=== PATIENT | male | born 1960 ===

== ENCOUNTER 2024-07-23 08:34 | Inpatient (IN) | payer SELFPAY ==
[2024-07-23] VITALS (15 sets, daily range): BP systolic 157–218; BP diastolic 80–119; PULSE 58–855; RESP 13–26; TEMP 36.7–37.2; O2SAT 95–99; BMI 23.1
--- NOTE | ~2024-07-23 | XR_ITS ---
EXAMINATION: XR CHEST CLINICAL INFORMATION: dyspnea COMPARISON: None available. TECHNIQUE: Frontal view of the chest was obtained. FINDINGS: The cardiac, hilar, and mediastinal contours are normal. Aortic mural calcification. Lungs are somewhat hyperaerated bilaterally. There are patchy airspace opacities bilateral lower lungs suspicious for pneumonia. Subtle Dejan B lines and haziness of the interstitium may indicate a mild superimposed degree of interstitial pulmonary edema. There are no effusions or pneumothorax. No focal osseous or soft tissue abnormality. XR/XR chest 1V IMPRESSION: 1. Hyperaerated lung parenchyma with bibasilar parenchymal opacities suspicious for pneumonia in the appropriate clinical setting. 2. Haziness of the interstitium with Dejan B lines in the lung bases may indicate associated mild interstitial pulmonary edema. Electronically signed by: Osvaldo Mancera MD 07/23/2024 11:03 AM EDT
[2024-07-23] MEDS: Albuterol Sulfate 7.5 MG, Albuterol/Iprat 2.5/0.5MG 3 ML 3 ML INHALE (08:48)
--- NOTE | 2024-07-23 09:00 | ECG_ITS ---
Test Reason : SOB/HTN Blood Pressure : */* mmHG Vent. Rate : 74 BPM Atrial Rate : 74 BPM P-R Int : 152 ms QRS Dur : 88 ms QT Int : 414 ms P-R-T Axes : 61 59 69 degrees QTcB Int : 459 ms Normal sinus rhythm Normal ECG When compared with ECG of 11-Oct-2006 06:54, Non-specific change in ST segment in Anterior leads T wave amplitude has increased in Lateral leads QT has lengthened Referred By: Mario Alberto Vuong Electronically Signed By: FREDDIE LUNA MD
--- NOTE | 2024-07-23 09:10 | ED.GENADULT ---
HPI - General Adult General Chief complaint: Dyspnea Stated complaint: SOB FROM SNF PER EMS Source: patient and EMS Mode of arrival: EMS Limitations: no limitations History of Present Illness HPI narrative: This is a 63-year-old man with a past medical history of anxiety/depression, schizophrenia, hypertension, GERD, COPD on home O2 at 2 L prn, asthma who [facility] [place] for evaluation of dyspnea. EMS reports that they were not given arrival. EMS states finding patient having difficulty breathing and initiated the patient on CPAP. EMS states that patient was very diminished on their arrival and so provided the patient with 0.3 mg IM epinephrine, 125 mg IV Solu-Medrol and continued DuoNeb that was initiated by the longterm facility. The patient states that he has been having difficulty breathing for a few days. He states no cough or hemoptysis. He states no chest pain. He states no fevers, headache, sore throat, runny nose or sputum production. He states no GI or symptoms. Related Data Allergies Allergy/AdvReac Type Severity Reaction Status Date / Time metoprolol Allergy Unknown Verified 07/23/24 09:01 oxycodone Allergy Unknown Verified 07/23/24 09:01 Sulfa (Sulfonamide Allergy Unknown Verified 07/23/24 09:01 Antibiotics) Review of Systems Review of Systems: ROS as per HPI PMFSH Social History Social History Smoked in Last 30 Days: No Use of substances other than those prescribed or required for medical reasons: No Advance Directives: No Advance Directives Information Provided: Yes Physical Exam ED Vital Signs: Vital Signs - 24 hr 07/23/24 08:52 07/23/24 08:56 07/23/24 09:01 Temperature 98.3 F Pulse Rate 855 H 83 Respiratory Rate 26 H 24 H 22 H Blood Pressure 189/116 H 209/112 H Pulse Oximetry 95 Oxygen Delivery Method Room Air 07/23/24 09:56 07/23/24 10:53 07/23/24 11:36 Temperature 98.1 F Pulse Rate 84 Respiratory Rate 21 H Blood Pressure 203/104 H 186/87 H 173/80 H Pulse Oximetry 98 Oxygen Delivery Method Room Air 07/23/24 11:58 Temperature 99.0 F Pulse Rate 60 Respiratory Rate 13 Blood Pressure 185/85 H Pulse Oximetry 99 Oxygen Delivery Method Room Air BMI result Body Mass Index 23.1 Gen: NAD, AOx3 HEENT: NCAT, EOMI, normal conjunctiva CV: RRR, tracel pretibial peripheral pitting edema Pulm: Tachypnea, scattered expiratory wheezes, good aeration to the bases GI: Soft, NTND, no rebound, guarding or rigidity Neuro: Grossly non focal Skin: Warm, dry Medications Administered Generic Name Dose Route Start Last Admin Trade Name Freq PRN Reason Stop Dose Admin Doxycycline Hyclate 100 mg/ 250 mls @ 166.67 mls/hr 07/23/24 11:11 07/23/24 11:36 Sodium Chloride IV 07/23/24 12:40 166.67 mls/hr ONCE ONE Administration Discontinued Medications Generic Name Dose Route Start Last Admin Trade Name Freq PRN Reason Stop Dose Admin Ceftriaxone Sodium 1 gm 07/23/24 11:11 07/23/24 11:36 Ceftriaxone Sodium 1 Gm Vial IVPUSH 07/23/24 11:12 1 gm ONCE ONE Administration Albuterol Sulfate 7.5 mg/ 0 mg 07/23/24 08:46 07/23/24 08:48 Albuterol/Ipratropium 3 ml INHALE 07/23/24 08:47 1 each ONCE ONE Administration Furosemide 20 mg 07/23/24 11:11 07/23/24 11:36 Furosemide 20 Mg/2 Ml Vial IVPUSH 07/23/24 11:12 20 mg ONCE ONE Administration Protocol Medical Decision Making Medical Decision Making MDM Narrative: Differential diagnosis includes, but is not limited to asthma exacerbation, COPD exacerbation, sepsis, pneumonia, acute decompensated congestive heart failure. 0942 - given patient presenting with concerns for hypoxia and tachypnea. Sepsis treatment is initiated. Blood cultures pending. 30cc/kg fluid bolus as per sepsis guidelines not provided due to concern for fluid overload/congestive heart failure decompensation. Given wheezes on exam consistent with bronchospasm, the patient is provided nebulized bronchodilators. 1111 - given concerning chest x-ray findings for potential pneumonia as below, patient is treated empirically for community-acquired pneumonia with ceftriaxone and doxycycline. I considered azithromycin, but QTC 459 so doxycycline is alternatively provided for atypical coverage. Chest x-ray with edema as below and so given that patient is Lasix naive as per review of his home medications patient mg IV Lasix. I reviewed the patient's labs, EKG, chest x-ray and viral panel as below. I discussed the patient's case and management with admitting hospitalist, Dr. Palma, who accepts the patient for further workup and management. Critical Care Time: A total of 45 minutes spent in direct patient care with coordinating critical resuscitation, procedures, reviewing records, discussing with consultants, reviewing labs, and/or managing patient. Admission/Observation Consideration of admission/observation: Escalation of care including admission/observation considered Consult Healthcare Provider Management of the patient was discussed with: Hospitalist Lab Data MDM Lab Attestation statement: I reviewed the patient's lab results. Labs notable for leukocytosis with white blood cell count of 15.7, stable anemia at 12.0, venous blood gas with mild metabolic alkalosis with pH 7.46, pCO2 43, HCO3 31. Metabolic panel with BUN 30 and creatinine 1.30 (no previous for comparison), lactic acid 2.9 which may be secondary to hypoxia and/or secondary to the beta agonist, there was mild transaminitis with AST 58 and ALT 57, BNP 1959, viral panel negative 07/23/24 10:50 07/23/24 09:52 Labs: Lab Results 07/23/24 07/23/24 07/23/24 Range/Units 09:52 09:53 10:49 WBC (4.8-10.8) X10*3/uL RBC (4.60-5.80) X10*6/uL Hgb (14.0-18.0) g/dl Hct (42.0-52.0) % MCV (80.0-98.0) fL MCH (27.0-33.0) pg MCHC (31.0-36.0) g/dl RDW (11.0-16.0) % Plt Count (160-400) X10*3/uL MPV (9.4-12.4) fL Immature Gran % (Auto) (0.0-0.4) % Neut % (Auto) (45-73) % Lymph % (Auto) (20-40) % [place] % (Auto) (2-11) % Eos % (Auto) (0-4) % Baso % (Auto) (0-2) % Lymph # (Auto) (1.2-4.9) X10*3/uL [place] # (Auto) (0.1-1.2) X10*3/uL Eos # (Auto) (0.0-0.4) X10*3/uL Baso # (Auto) (0.0-0.2) X10*3/uL Abs Immat Gran (auto) (0.00-0.03) X10*3/uL Absolute Neuts (auto) (2.0-8.3) x10*3/uL Absolute Nucleated RBC (0.0-0.012) X10*3/uL Nucleated RBC % (auto) (0.0-0.2) /100WBC VBG pH 7.46 H (7.32-7.43) VBG pCO2 43 mmHg VBG pO2 66 mmHg VBG HCO3 31 H (22-26) mmol/L VBG O2 Saturation 90.0 % VBG Base Excess 7.1 mmol/L Sodium 136 (135-145) mmol/L Potassium 3.7 (3.3-5.1) mmol/L Chloride 100 (96-108) mmol/L Carbon Dioxide 27 (22-29) mmol/L Anion Gap 13 (12-20) BUN 30 H (9-16) mg/dL Creatinine 1.30 (0.5-1.4) mg/dL Estim Creat Clear Calc 54.3 Estimated GFR 56 Random Glucose 120 H (60-115) mg/dL Lactic Acid 2.9 H* (0.5-2.0) mmol/L Calcium 8.3 L (8.4-10.2) mg/dL Total Bilirubin 0.6 (0.0-1.0) mg/dL Direct Bilirubin 0.2 (0.0-0.5) mg/dL AST 58 H (5-37) U/L ALT 57 H (0-40) U/L Alkaline Phosphatase 63 (39-117) U/L B-Natriuretic Peptide 1959 H (<100) pg/mL Total Protein 5.8 L (6.5-8.0) g/dL Albumin 3.1 L (3.5-5.0) g/dL Influenza Type A (PCR) NEGATIVE (Negative) Influenza Type B (PCR) NEGATIVE (Negative) RSV RNA Qual (PCR) NEGATIVE (Negative) SARS-CoV-2 RNA (RT-PCR) NEGATIVE (Negative) 05/28/25 05/28/25 Range/Units 10:50 10:54 WBC 15.7 H (4.8-10.8) X10*3/uL RBC 3.94 L (4.60-5.80) X10*6/uL Hgb 12.0 L (14.0-18.0) g/dl Hct 36.4 L (42.0-52.0) % MCV 92.4 (80.0-98.0) fL MCH 30.5 (27.0-33.0) pg MCHC 33.0 (31.0-36.0) g/dl RDW 16.5 H (11.0-16.0) % Plt Count 179 (160-400) X10*3/uL MPV 10.3 (9.4-12.4) fL Immature Gran % (Auto) 1.1 H (0.0-0.4) % Neut % (Auto) 92.3 H (45-73) % Lymph % (Auto) 2.7 L (20-40) % [place] % (Auto) 3.7 (2-11) % Eos % (Auto) 0.1 (0-4) % Baso % (Auto) 0.1 (0-2) % Lymph # (Auto) 0.4 L (1.2-4.9) X10*3/uL [place] # (Auto) 0.6 (0.1-1.2) X10*3/uL Eos # (Auto) 0.0 (0.0-0.4) X10*3/uL Baso # (Auto) 0.0 (0.0-0.2) X10*3/uL Abs Immat Gran (auto) 0.17 H (0.00-0.03) X10*3/uL Absolute Neuts (auto) 14.5 H (2.0-8.3) x10*3/uL Absolute Nucleated RBC 0.000 (0.0-0.012) X10*3/uL Nucleated RBC % (auto) 0.0 (0.0-0.2) /100WBC VBG pH 7.46 H (7.32-7.43) VBG pCO2 43 mmHg VBG pO2 66 mmHg VBG HCO3 31 H (22-26) mmol/L VBG O2 Saturation 90.0 % VBG Base Excess 7.1 mmol/L Sodium (135-145) mmol/L Potassium (3.3-5.1) mmol/L Chloride (96-108) mmol/L Carbon Dioxide (22-29) mmol/L Anion Gap (12-20) BUN (9-16) mg/dL Creatinine (0.5-1.4) mg/dL Estim Creat Clear Calc Estimated GFR Random Glucose (60-115) mg/dL Lactic Acid (0.5-2.0) mmol/L Calcium (8.4-10.2) mg/dL Total Bilirubin (0.0-1.0) mg/dL Direct Bilirubin (0.0-0.5) mg/dL AST (5-37) U/L ALT (0-40) U/L Alkaline Phosphatase (39-117) U/L B-Natriuretic Peptide (<100) pg/mL Total Protein (6.5-8.0) g/dL Albumin (3.5-5.0) g/dL Influenza Type A (PCR) (Negative) Influenza Type B (PCR) (Negative) RSV RNA Qual (PCR) (Negative) SARS-CoV-2 RNA (RT-PCR) (Negative) Independent Interpretation I performed an independent interpretation of an: EKG and Plain X-Ray Interpretation: EKG shows sinus rhythm at 74 beats per minute, SC 152, QRS 88, QTC 459, no STEMI. Chest x-ray with bibasilar opacities concerning for pneumonia, no pleural effusion or pneumothorax Radiology Impression Discussion of test interpretation with radiology: I have reviewed the radiologist's reading. Radiologist Impression: XR/XR chest 1V IMPRESSION: 1. Hyperaerated lung parenchyma with bibasilar parenchymal opacities suspicious for pneumonia in the appropriate clinical setting. 2. Haziness of the interstitium with Dejan B lines in the lung bases may indicate associated mild interstitial pulmonary edema. Electronically signed by: Osvaldo Mancera MD 07/23/2024 11:03 AM EDT Dictated By: Osvaldo Mancera MD Signed By: <Electronically signed by Osvaldo Mancera MD in OV> 07/23/24 1103 External Record Review External record reviewed: Outpatient record I reviewed external/non-ED record from [facility] to obtain the patient's past medical history as per HPI above Discharge Plan Discharge Clinical Impression: Asthma with exacerbation, Asthma exacerbation in COPD, Pulmonary edema, Sepsis, Pneumonia, Leukocytosis, Anemia, Acute lactic acidosis, Elevated brain natriuretic peptide (BNP) level Patient Disposition: Admitted As Inpatient Print Language: Kittitian
[2024-07-23 10:25] LABS: Alanine Aminotransferase 57 U/L (0-40); Albumin Level 3.1 g/dL (3.5-5.0); Alkaline Phosphatase 63 U/L (39-117); Anion Gap 13 (12-20); Aspartate Amino Transferase 58 U/L (5-37); Bilirubin Direct 0.2 mg/dL (0.0-0.5); Bilirubin Total 0.6 mg/dL (0.0-1.0); Blood Urea Nitrogen 30 mg/dL (9-16); Calcium 8.3 mg/dL (8.4-10.2); Carbon Dioxide 27 mmol/L (22-29); Chloride 100 mmol/L (96-108); Creatinine Clr Calc Pharmacy 54.3; Estimated Glomerular Filt Rate 56; Glucose Random 120 mg/dL (60-115); Potassium 3.7 mmol/L (3.3-5.1); Sodium 136 mmol/L (135-145); Total Protein 5.8 g/dL (6.5-8.0)
[2024-07-23 10:28] LABS: B Type Natriuretic Peptide 1959 pg/mL (<100)
[2024-07-23 10:36] LABS: Lactic Acid 2.9 mmol/L (0.5-2.0)
[2024-07-23 10:40] LABS: Influenza A PCR NEGATIVE (Negative); Influenza B PCR NEGATIVE (Negative); Resp Syncy Virus RNA Qual PCR NEGATIVE (Negative); SARS COV2 PCR INHOUSE NEGATIVE (Negative)
[2024-07-23 10:55] LABS: Venous Blood Gas Refer to POC result
[2024-07-23 10:58] LABS: VBG Base Excess 7.1 mmol/L; VBG HCO3 31 mmol/L (22-26); VBG pCO2 43 mmHg; VBG pH 7.46 (7.32-7.43); VBG pO2 66 mmHg
[2024-07-23 10:59] LABS: VBG Base Excess 7.1 mmol/L; VBG HCO3 31 mmol/L (22-26); VBG pCO2 43 mmHg; VBG pH 7.46 (7.32-7.43); VBG pO2 66 mmHg
[2024-07-23 11:02] LABS: Basophils Percent Auto 0.1 % (0-2); MANUAL DIFF FLAG SCAN; PLT CLUMP 1; Red Cell Distribution Width 16.5 % (11.0-16.0); SCAN SMEAR FLAG 1
[2024-07-23 11:04] LABS: Eosinophils Percent Auto 0.1 % (0-4); Hematocrit 36.4 % (42.0-52.0); Imm Gran Abs Auto 0.17 X10*3/uL (0.00-0.03); Imm Gran Pct Auto 1.1 % (0.0-0.4); Lymphocytes Absolute Auto 0.4 X10*3/uL (1.2-4.9); Lymphocytes Percent Auto 2.7 % (20-40); Mean Corpuscular Hemoglobin 30.5 pg (27.0-33.0); Mean Corpuscular Volume 92.4 fL (80.0-98.0); Monocytes Absolute Auto 0.6 X10*3/uL (0.1-1.2); Monocytes Percent Auto 3.7 % (2-11); Neutrophils Absolute Auto 14.5 x10*3/uL (2.0-8.3); Neutrophils Percent Auto 92.3 % (45-73); Red Blood Count 3.94 X10*6/uL (4.60-5.80)
[2024-07-23 11:05] LABS: White Blood Count 15.7 X10*3/uL (4.8-10.8)
[2024-07-23 11:22] LABS: Mean Platelet Volume 10.3 fL (9.4-12.4); Platelet Count 179 X10*3/uL (160-400)
[2024-07-23] MEDS: Doxycycline Hyclate 100 MG in 0.9 % Sodium Chloride 250 ML 166.67 MG IV (11:36)
[2024-07-23] MEDS: cefTRIAXone sodium 1 GM VIAL IVPUSH (11:36)
[2024-07-23] MEDS: Furosemide 20 MG/2 ML VIAL IVPUSH ×2 (11:36→18:25)
[2024-07-23 11:59] LABS: Reflex Lactate? Lactic Acid Added
[2024-07-23 12:09] LABS: INTERNATIONAL NORM RATIO 0.9 (0.9-1.1); Prothrombin Time 9.9 SEC (10.9-12.4)
[2024-07-23 12:12] LABS: Partial Thromboplastin Time 25.6 SEC (26.0-36.8)
[2024-07-23 12:31] LABS: ~Lactic Acid-LAB USE ONLY 1.8 mmol/L (0.5-2.0)
--- NOTE | 2024-07-23 12:41 | PM.IMHP ---
History of Present Illness Date of Service: 07/23/24 Chief Complaint: Shorthess of breath 63-year-old male with past medical history of COPD not on home oxygen, hypertension, hyperlipidemia, schizophrenia, resident? of [facility] brought to the ED for evaluation of acute onset of shortness of breah, and initially required CPAP and has made rapid imprvement since in the ED, of CPAP. Now oxygen saturation 99 on room air. Flu, RSV and Inlufenza negative. WBC is 15, CXR possible infiltrate and Pura B line, BNP 1959, no Troponin I done. ED treatment Doxy, Ceftriaxone, Albuterol and 20 mg of iv Lasix. . At the time of my evaluation, had no respiratory distress an fairly comfortable, but BP high Review of Systems Review of Systems: Gen: no fever Resp: no sob, no cough CV: no chest, no NAVA, no leg edema GI: No n/v, no abd pain Neuro: No confusion Yes all other systems are reviewed and are negative PMFSH Social History Smoked in Last 30 Days: No Use of substances other than those prescribed or required for medical reasons: No Advance Directives: No Advance Directives Information Provided: Yes Meds Allergies Allergy/AdvReac Type Severity Reaction Status Date / Time metoprolol Allergy Unknown Verified 07/23/24 09:01 oxycodone Allergy Unknown Verified 07/23/24 09:01 Sulfa (Sulfonamide Allergy Unknown Verified 07/23/24 09:01 Antibiotics) Home Medications ?Medication ?Instructions ?Recorded ?Confirmed ?Last Taken ?Type acetaminophen 500 mg tablet 1,000 mg PO Q6H PRN dilia 07/23/24 07/23/24 Unknown History acetaminophen 650 mg rectal 650 mg GA Q4-6H PRN pain or fever 07/23/24 07/23/24 Unknown History suppository albuterol sulfate 90 mcg/actuation 2 puff inhalation Q4-6H PRN 07/23/24 07/23/24 Unknown History aerosol inhaler Wheezing amlodipine 2.5 mg tablet (Norvasc) 2.5 mg PO DAILY 07/23/24 07/23/24 Unknown History aspirin 81 mg tablet,delayed 81 mg PO DAILY 07/23/24 07/23/24 Unknown History release atorvastatin 40 mg tablet 40 mg PO BEDTIME 07/23/24 07/23/24 Unknown History benztropine 2 mg tablet 2 mg PO TID 07/23/24 07/23/24 Unknown History bisacodyl 10 mg rectal suppository 10 mg GA DAILY PRN Constipation 07/23/24 07/23/24 Unknown History cetirizine 10 mg tablet 10 mg PO DAILY PRN allergies 07/23/24 07/23/24 Unknown History docusate sodium 50 mg/5 mL oral 100 mg PO BID PRN Constipation 07/23/24 07/23/24 Unknown History liquid ferrous gluconate 324 mg (38 mg 324 mg PO DAILY 07/23/24 07/23/24 Unknown History iron) tablet fluticasone furoate 200 1 inh inhalation DAILY 07/23/24 07/23/24 Unknown History mcg-vilanterol 25 mcg/dose inhalation powder (Breo Ellipta) folic acid 1 mg tablet 1 mg PO DAILY 07/23/24 07/23/24 Unknown History gabapentin 300 mg capsule 300 mg PO TID 07/23/24 07/23/24 Unknown History haloperidol 2 mg tablet 2 mg PO BEDTIME 07/23/24 07/23/24 Unknown History hydroxyzine pamoate 25 mg capsule 25 mg PO DAILY 07/23/24 07/23/24 Unknown History ipratropium 0.5 mg-albuterol 3 mg 3 ml inhalation Q4H PRN Wheezing 07/23/24 07/23/24 Unknown History (2.5 mg base)/3 mL nebulization soln magnesium hydroxide 400 mg/5 mL 400 mg PO DAILY PRN Constipation 07/23/24 07/23/24 Unknown History oral suspension (Milk of Magnesia) melatonin 3 mg tablet 3 mg PO BEDTIME 07/23/24 07/23/24 Unknown History mirtazapine 7.5 mg tablet 7.5 mg PO BEDTIME 07/23/24 07/23/24 Unknown History multivitamin 1 tab PO DAILY 07/23/24 07/23/24 Unknown History nicotine (polacrilex) 4 mg buccal 4 mg buccal Q2-4H PRN Nicotine 07/23/24 07/23/24 Unknown History lozenge Cravings omeprazole 20 mg capsule,delayed 40 mg PO DAILY@0630 07/23/24 07/23/24 Unknown History release prednisone 10 mg tablet 10 mg PO DAILY 07/23/24 07/23/24 Unknown History propranolol 60 mg capsule,24 60 mg PO DAILY 07/23/24 07/23/24 Unknown History hr,extended release sodium phosphates 19 gram-7 118 ml GA DAILY PRN Constipation 07/23/24 07/23/24 Unknown History gram/118 mL enema (Fleet Enema) thiamine HCl (vitamin B1) 100 mg 100 mg PO DAILY 07/23/24 07/23/24 Unknown History tablet tiotropium bromide 18 mcg capsule 1 cap inhalation DAILY 07/23/24 07/23/24 Unknown History with inhalation device Physical Exam Vital Signs and Narrative: Vital Signs: Last Vital Signs Temp 99.0 F 07/23/24 11:58 Pulse 60 07/23/24 11:58 Resp 13 07/23/24 11:58 BP 185/85 H 07/23/24 11:58 Pulse Ox 99 07/23/24 11:58 O2 Del Method Room Air 07/23/24 11:58 BMI result Body Mass Index 23.1 Const: Other: General: AO X 3, no acute distress Resp: CTA bilateral CVS: S1,S2,RRR GI: +BS, NT, no distention Skin: No rash Neuro: motor grossly intact Psych: appropriate affect Results Labs 07/23/24 10:50 07/23/24 09:52 Labs: Laboratory Results - last 24 hr 07/23/24 07/23/24 07/23/24 09:52 09:53 10:49 MCV MCH MCHC RDW Plt Count MPV Immature Gran % (Auto) Neut % (Auto) Lymph % (Auto) [place] % (Auto) Eos % (Auto) Baso % (Auto) Lymph # (Auto) [place] # (Auto) Eos # (Auto) Baso # (Auto) Abs Immat Gran (auto) Absolute Neuts (auto) Absolute Nucleated RBC Nucleated RBC % (auto) PT INR APTT VBG pH 7.46 H VBG pCO2 43 VBG pO2 66 VBG HCO3 31 H VBG O2 Saturation 90.0 VBG Base Excess 7.1 Anion Gap 13 Estim Creat Clear Calc 54.3 Estimated GFR 56 Random Glucose 120 H Lactic Acid 2.9 H* Lactic Acid F/U @ 2Hr Calcium 8.3 L Total Bilirubin 0.6 Direct Bilirubin 0.2 AST 58 H ALT 57 H Alkaline Phosphatase 63 B-Natriuretic Peptide 1959 H Total Protein 5.8 L Albumin 3.1 L Influenza Type A (PCR) NEGATIVE Influenza Type B (PCR) NEGATIVE RSV RNA Qual (PCR) NEGATIVE SARS-CoV-2 RNA (RT-PCR) NEGATIVE 07/23/24 07/23/24 07/23/24 10:50 10:54 11:51 MCV 92.4 MCH 30.5 MCHC 33.0 RDW 16.5 H Plt Count 179 MPV 10.3 Immature Gran % (Auto) 1.1 H Neut % (Auto) 92.3 H Lymph % (Auto) 2.7 L [place] % (Auto) 3.7 Eos % (Auto) 0.1 Baso % (Auto) 0.1 Lymph # (Auto) 0.4 L [place] # (Auto) 0.6 Eos # (Auto) 0.0 Baso # (Auto) 0.0 Abs Immat Gran (auto) 0.17 H Absolute Neuts (auto) 14.5 H Absolute Nucleated RBC 0.000 Nucleated RBC % (auto) 0.0 PT 9.9 L INR 0.9 APTT 25.6 L VBG pH 7.46 H VBG pCO2 43 VBG pO2 66 VBG HCO3 31 H VBG O2 Saturation 90.0 VBG Base Excess 7.1 Anion Gap Estim Creat Clear Calc Estimated GFR Random Glucose Lactic Acid Lactic Acid F/U @ 2Hr Calcium Total Bilirubin Direct Bilirubin AST ALT Alkaline Phosphatase B-Natriuretic Peptide Total Protein Albumin Influenza Type A (PCR) Influenza Type B (PCR) RSV RNA Qual (PCR) SARS-CoV-2 RNA (RT-PCR) 07/23/24 12:04 MCV MCH MCHC RDW Plt Count MPV Immature Gran % (Auto) Neut % (Auto) Lymph % (Auto) [place] % (Auto) Eos % (Auto) Baso % (Auto) Lymph # (Auto) [place] # (Auto) Eos # (Auto) Baso # (Auto) Abs Immat Gran (auto) Absolute Neuts (auto) Absolute Nucleated RBC Nucleated RBC % (auto) PT INR APTT VBG pH VBG pCO2 VBG pO2 VBG HCO3 VBG O2 Saturation VBG Base Excess Anion Gap Estim Creat Clear Calc Estimated GFR Random Glucose Lactic Acid Lactic Acid F/U @ 2Hr 1.8 Calcium Total Bilirubin Direct Bilirubin AST ALT Alkaline Phosphatase B-Natriuretic Peptide Total Protein Albumin Influenza Type A (PCR) Influenza Type B (PCR) RSV RNA Qual (PCR) SARS-CoV-2 RNA (RT-PCR) Imaging Radiologist's Impressions: Impressions Chest X-Ray 07/23/24 08:41 IMPRESSION: 1. Hyperaerated lung parenchyma with bibasilar parenchymal opacities suspicious for pneumonia in the appropriate clinical setting. 2. Haziness of the interstitium with Dejan B lines in the lung bases may indicate associated mild interstitial pulmonary edema. Electronically signed by: Osvaldo Mancera MD 07/23/2024 11:03 AM EDT RP Assessment and Plan (1) Elevated brain natriuretic peptide (BNP) level: Status: Acute (2) Acute lactic acidosis: Status: Acute (3) Asthma with exacerbation: Status: Acute (4) Asthma exacerbation in COPD: Status: Acute (5) Pulmonary edema: Status: Acute (6) Pneumonia: Status: Acute Plan 63/m with copd here with acute respiratory distress and found to have PNA, COPD exacerbation and possible heart failure. Acute respriatory distress d/t copd exacerbation and pneumonia, CHFno excluded treat underlying pneumonia with ceftriaxone and doxy bronchodilators and steroid for copd exacerbation Probable Acute CHF IV diuretics check troponin echocardiogram IV Lasix Acute lactic acidosis, not due to sepsis HLD lipitor HTN continue home meds and adjust as needed Schizophrenia continue home meds DVT prophylaxis Lovenox Full code Quality Stroke Does the patient have a stroke diagnosis?: No VTE Prior VTE?: No VTE Risk Level:: Medical - moderate - high VTE Device Contraindication: Treatment Not Indicated VTE Drug Contraindication: N/A - Med Ordered
--- NOTE | 2024-07-23 13:00 | PHA.MEDREC ---
Pharmacy Consult ? Medication Reconciliation Pharmacy has completed the medication reconciliation. Received med list from [facility] in order to confirm medications.
[2024-07-23 13:22] LABS: SLIDE REVIEW VERIFIED
[2024-07-23] MEDS: Enoxaparin Sodium 40 MG/0.4 ML SYRINGE SUBCUT (14:44)
[2024-07-23] MEDS: Benztropine Mesylate 1 MG TABLET 2 MG PO ×2 (14:44→22:16)
[2024-07-23] MEDS: Gabapentin 300 MG CAPSULE PO ×2 (14:44→22:16)
--- NOTE | 2024-07-23 15:50 | PC.NURSE ---
per dr barboza via mh message, continuous telemetry order cancelled. verbal nurse to nurse report given to wilson. pt to overflow via transportation operations manager.
[2024-07-23] MEDS: hydrALAZINE HCl 20 MG/ML VIAL 5 MG IVPUSH (16:42)
[2024-07-23] MEDS: 0.9 % Sodium Chloride Flush 3 ML SYRINGE IVFLUSH (16:48)
[2024-07-23 17:37] LABS: Troponin-I High Sensitivity 235.1 ng/L (<3.5-35.0)
--- NOTE | 2024-07-23 17:55 | PM.EVENT ---
Event Note Date of Service: 07/23/24 Event Note: Elevated troponin > 200, in setting of acute heart failure, concen for ACS, starting IV heparin, ASA, already on BB, echo tomorrow, and cardiology consulation. Time Spent With Patient Time: Total time managing care of this patient today ____ minutes.
[2024-07-23] MEDS: Aspirin Enteric Coated 81 MG TABLET.DR PO (18:23)
[2024-07-23] MEDS: Heparin Sodium,Porcine 5,000 UNIT/ML VIAL 4000 UNIT IVPUSH (18:33)
[2024-07-23] MEDS: Heparin Sodium,Porcine/1/2NS 25,000 UNIT/250 ML IV.SOLN 8.04 UNIT IVCONT (18:39)
--- NOTE | 2024-07-23 18:50 | PC.NURSE ---
Heparinn gtt started, 12 units/kg/hr per protocol, next ptthd to be drawn at 1240. PTT ordered at 1730 not needed, one resulted from prior in shift. Per [facility]. IV site infiltrated with Heparin bolus admin, new iv start to right bicep 22g, Heparin gtt infusing. Lasix given, urinal at bedside. NSR on tele
[2024-07-23 20:39] LABS: Troponin-I High Sensitivity 237.9 ng/L (<3.5-35.0)
[2024-07-23] MEDS: HaloperidoL 1 MG TABLET 2 MG PO (22:15)
[2024-07-23] MEDS: Doxycycline Monohydrate 100 MG CAPSULE PO (22:16)
[2024-07-23] MEDS: Atorvastatin Calcium 40 MG TABLET PO (22:16)
[2024-07-23] MEDS: Melatonin 3 MG TABLET PO (22:16)
[2024-07-23] MEDS: Mirtazapine 7.5 MG TABLET PO (22:16)
[2024-07-23] MEDS: methylPREDNISolone Sod Succ 40 MG/ML VIAL 20 MG IVPUSH (22:17)
[2024-07-24] VITALS (14 sets, daily range): BP systolic 158–198; BP diastolic 70–105; PULSE 55–69; RESP 11–20; TEMP 36.3–37.2; O2SAT 93–100; BMI 23.5
[2024-07-24 01:32] LABS: PTT Heparin Drip 52.6 SEC (53-77.9)
[2024-07-24] MEDS: Heparin Sodium,Porcine 5,000 UNIT/ML VIAL 2700 UNIT IVPUSH (02:24)
[2024-07-24 05:49] LABS: Hematocrit 33.3 % (42.0-52.0); Hemoglobin 10.7 g/dl (14.0-18.0); Mean Corpuscular HGB Conc 32.1 g/dl (31.0-36.0); Mean Corpuscular Hemoglobin 30.1 pg (27.0-33.0); Mean Corpuscular Volume 93.8 fL (80.0-98.0); Mean Platelet Volume 10.5 fL (9.4-12.4); Platelet Count 163 X10*3/uL (160-400); Red Blood Count 3.55 X10*6/uL (4.60-5.80); Red Cell Distribution Width 16.7 % (11.0-16.0); White Blood Count 9.9 X10*3/uL (4.8-10.8)
[2024-07-24 06:04] LABS: Anion Gap 13 (12-20); Blood Urea Nitrogen 36 mg/dL (9-16); Carbon Dioxide 27 mmol/L (22-29); Chloride 101 mmol/L (96-108); Estimated Glomerular Filt Rate 59; Glucose Random 103 mg/dL (60-115); Potassium 3.4 mmol/L (3.3-5.1); Sodium 138 mmol/L (135-145)
[2024-07-24] MEDS: Omeprazole 40 MG CAPSULE.DR PO (06:13)
[2024-07-24 06:18] LABS: Troponin-I High Sensitivity 118.5 ng/L (<3.5-35.0)
--- NOTE | 2024-07-24 07:00 | CA_ITS ---
Transthoracic Echocardiogram Patient (Last, First, Middle): Darrell Victor, Gender: Male Date of : 1960 Age: 63 Procedure Date: 07/24/2024 Procedure Type: Transthoracic Echocardiogram [place] [facility] [place]: 170.18 cm Weight: 66.68 kg BSA: 1.77 m2 Heart Rate: bpm BP: 196 / 88 mmHg Yarn Inspector: TO Referring MD: Lc Davison MD [employer] Vault Worker: Elvin Sheriff MD Symptoms: NSTEMI, CHF Study Quality: Fair/Contrast ECG Rhythm: Sinus Conclusions: - 1. Normal LV ejection fraction 55-60% with moderate asymmetric septal hypertrophy with impaired relaxation filling pattern and elevated filling pressures 2. Mildly dilated left atrium 3. Mild aortic and mitral regurgitation 4. Per limits of normal ascending aortic size 5. No gross pericardial effusion Findings Procedure Information Contrast agent, definity, is being given per protocol without apparent complications. Left Ventricle Normal left ventricular size, thickness, and systolic function. The visually estimated ejection fraction is between 55-60%. Spectral Doppler is indicative of an impaired relaxation filling pattern. E/E prime ratio is >15, consistent with elevated filling pressures. There is moderate septal asymmetric hypertrophy. Right Ventricle Normal right ventricular cavity size and systolic function. Atria The left atrium is mildly dilated. There is no evidence of interatrial shunt. The right atrium is likely dilated. Aortic Valve The aortic valve structure and function is likely normal. There is no aortic valve stenosis. There is mild aortic valve regurgitation. Mitral Valve There is mild anterior and posterior mitral leaflet thickening. There is mild mitral valve regurgitation. There is no mitral valve stenosis. Pulmonic Valve The pulmonic valve was not well visualized. Tricuspid Valve Likely normal tricuspid valve structure and function. Tricuspid regurgitation envelope is inadequate for calculation of right ventricular systolic pressure. Normal right atrial pressure. Great Vessels All visible segments of the aorta are normal in size. The pulmonary artery was not well visualized. Venous The inferior vena cava is normal in size and collapses greater than 50% with inspiration. Pericardium/Pleural There is no evidence of pericardial effusion. Prior Study Comparison no previous study in the last 5 years for comparison Measurements 2D Linear Measurements IVSd: 1.72 0.6-0.9/0.6-1.0 cm LVIDd: 5.09 3.9-5.3/4.2-5.9 cm LVIDd Index: 2.88 2.4-3.2/2.2-3.1 cm/m2 LVIDs: 3.84 2.0-3.6 cm LVPWd: 1.00 0.7-1.1 cm LV Mass: 358.29 67-162/88-224 g LV Mass Index: 202.42 43-95/49-115 g/m2 LVOT Diam: 2.20 3.0+(-)1.3 cm 2D Systolic Function EF 4C: 55.10 >55% EF 2C: 56.00 >55% EF BiP: 54.40 >55% Mitral Valve MV Pk E: 1.12 MV PK A: 1.06 MV Decel Time: 190.00 E/A: 1.10 E'Lateral: 5.33 E'Medial: 4.35 E/E' Med: 25.70 E/E' Lat: 21.00 PHT: 56.00 MVA PHT: 3.93 Decel Haskell: 5.90 Aortic Valve AoV Pk Liban: 1.48 AoV Mn Liban: 0.97 AoV VTI: 0.31 AoV Pk Grad: 9.00 Aov Mn Grad: 4.00 IVA Cont.VTI: 3.64 LVOT LVOT Pk Liban: 1.35 LVOT Mn Liban: 0.87 LVOT VTI: 0.30 LVOT Pk Grad: 7.00 LVOT Mn Grad: 3.00 LVOT Diam: 2.20 LVOT Area: 3.80 Diastolic Function MV Pk E: 1.12 MV Pk A: 1.06 E/A: 1.10 E'Medial: 4.35 E/E' Med: 25.70 E' Laterial: 5.33 E/E' Lat: 21.00 Right Ventricle TAPSE (mm): 19.50 TVS' Liban: 12.80 Tricuspid Valve RA Press: 3.00 Great Vessels Aorta Sinus of Valsalva: 3.71 2.0-3.5 cm Ao Asc: 3.60 2.1-3.4 cm Updated in Other Vendor System with Status of Final Elvin Sheriff MD electronically signed on 07/24/2024 12:58:41 PM with status of Final
[2024-07-24] MEDS: cefTRIAXone sodium 1 GM VIAL IVPUSH (07:27)
[2024-07-24] MEDS: Benztropine Mesylate 1 MG TABLET 2 MG PO ×3 (07:27→23:22)
[2024-07-24] MEDS: Furosemide 20 MG/2 ML VIAL IVPUSH (07:28)
[2024-07-24] MEDS: Doxycycline Monohydrate 100 MG CAPSULE PO ×2 (07:28→23:21)
[2024-07-24] MEDS: 0.9 % Sodium Chloride Flush 3 ML SYRINGE IVFLUSH ×2 (07:29→23:22)
[2024-07-24] MEDS: Folic Acid 1 MG TABLET PO (07:29)
[2024-07-24] MEDS: methylPREDNISolone Sod Succ 40 MG/ML VIAL 20 MG IVPUSH ×2 (07:29→23:21)
[2024-07-24] MEDS: Ferrous Sulfate 324 MG TABLET.DR PO (07:30)
[2024-07-24] MEDS: Thiamine HCL 100 MG TABLET PO (07:30)
[2024-07-24] MEDS: hydrOXYzine HCL 25 MG TABLET PO (07:30)
[2024-07-24] MEDS: Aspirin Enteric Coated 81 MG TABLET.DR PO (07:30)
[2024-07-24] MEDS: Multivitamin TABLET 1 TAB PO (07:30)
[2024-07-24] MEDS: Gabapentin 300 MG CAPSULE PO ×3 (07:31→23:21)
[2024-07-24] MEDS: hydrALAZINE HCl 20 MG/ML VIAL 5 MG IVPUSH ×2 (08:45→17:01)
--- NOTE | 2024-07-24 08:55 | PM.CNCAR ---
History of Present Illness History of Present Illness Date of Service: 07/24/24 Requesting physician: [facility] Consult reason: troponin elevation and other (Acute hypoxemic respiratory failure) Chief complaint: copd exacerbation, pneumonia Narrative: I was consulted to see Darrell in cardiology consultation today for elevated BNP and troponin in his setting of acute shortness of breath. Patient is a 63-year-old male with prior history of significant COPD requiring oxygen currently at a long-term facility was referred here because of significant worsening of his shortness of breath. Said this was pretty quick onset. Patient denied any significant cough productive of phlegm but did have some yellowish phlegm. No fever or chills reported. Patient had no reports of chest pain. When he came to the hospital was noted to be significantly hypoxemic, chest x-ray was done which showed significant COPD and possible CHF findings. BNP was significantly elevated. He was given Lasix treated with CPAP which was required for rescue. He was also noted to have lactic acidosis most likely from hypoxemia. EKG showed no acute ischemia. Troponins were drawn and showed elevation up to 200 range and has been downtrending. Persistently hypertensive. Patient said that he has prior history of myocardial infarction although no interventions were performed. This was diagnose in [facility] couple years ago, did not undergo cardiac catheterization as per him. He has no known history of CHF as per him. No known history of cardiac arrhythmias. He continues to be short of breath and says he requires oxygen to help him breathe. Review of Systems Constitutional: Constitutional: Denies body ache(s), Denies chills and Denies fever(s) Eyes: Eyes: Reports no additional eye complaints ENT: Reports system reviewed and no additional complaints, except as documented Cardiovascular: Cardiovascular: Denies chest pain, Denies syncope, Denies rapid heart rate, Denies lightheadedness, Denies Loss of Consciousness, Denies palpitations and Reports dyspnea Respiratory: Respiratory: Reports cough and Reports dyspnea Gastrointestinal: Gastrointestinal: Reports no additional gastrointestinal complaints Genitourinary: Genitourinary: Reports no additional male genitourinary complaints Musculoskeletal: Musculoskeletal: Reports no additional musculoskeletal complaints Integumentary/Breasts: Skin/Breast: Reports system reviewed and no additional complaints, except as docu Neurologic: Reports system reviewed and no additional complaints, except as documented and Denies syncope Psychiatric: Psychiatric: Reports no additional psychiatric complaints Endocrine: Endocrine: Reports no additional endocrine complaints and Denies palpitations Meds Allergies Allergy/AdvReac Type Severity Reaction Status Date / Time metoprolol Allergy Unknown Verified 07/24/24 08:03 oxycodone Allergy Unknown Verified 07/24/24 08:03 Sulfa (Sulfonamide Allergy Unknown Verified 07/24/24 08:03 Antibiotics) Active Medications: Current Medications Acetaminophen (Acetaminophen Supp 650 Mg Supp.Rect) 650 mg NM Q4H PRN PRN Reason: pain or fever Acetaminophen (Acetaminophen 325 Mg Tablet) 975 mg PO Q6H PRN PRN Reason: dilia Albuterol Sulfate (Albuterol Sulfate 90 Mcg 8 Gm Inhaler) 2 puff INHALE Q4H PRN PRN Reason: Wheezing Albuterol/Ipratropium (Albuterol/Iprat 2.5/0.5mg 3 Ml Ampul.Neb) 3 ml INHALE Q4H PRN PRN Reason: Shortness of Breath/Wheezing Amlodipine Besylate (Amlodipine Besylate 2.5 Mg Tablet) 2.5 mg PO DAILY [facility]; Protocol Aspirin (Aspirin Enteric Coated 81 Mg Tablet.) 81 mg PO DAILY [facility] Last Admin: 07/24/24 07:30 Dose: 81 mg Atorvastatin Calcium (Atorvastatin Calcium 40 Mg Tablet) 40 mg PO BEDTIME [facility] Last Admin: 07/23/24 22:16 Dose: 40 mg Benztropine Mesylate (Benztropine Mesylate 1 Mg Tablet) 2 mg PO TID [facility] Last Admin: 07/24/24 07:27 Dose: 2 mg Bisacodyl (Bisacodyl 10 Mg Supp.Rect) 10 mg NM DAILY PRN PRN Reason: Constipation Calcium Carbonate (Calcium Carbonate 750 Mg Tab.Chew) 750 mg PO Q4H PRN PRN Reason: Heartburn Ceftriaxone Sodium (Ceftriaxone Sodium 1 Gm Vial) 1 gm IVPUSH DAILY [facility] Last Admin: 07/24/24 07:27 Dose: 1 gm Docusate Sodium (Docusate Sodium 100 Mg/10 Ml Liquid) 100 mg PO BID PRN PRN Reason: Constipation Doxycycline Monohydrate (Doxycycline Monohydrate 100 Mg Capsule) 100 mg PO BID [facility] Last Admin: 07/24/24 07:28 Dose: 100 mg Ferrous Sulfate (Ferrous Sulfate 324 Mg Tablet.) 324 mg PO DAILY [facility] Last Admin: 07/24/24 07:30 Dose: 324 mg Fluticasone/Vilanterol (Fluticasone/Vilanterol 200/25 Blst.W.Dev) 1 puff INHALE RDAILY [facility] Folic Acid (Folic Acid 1 Mg Tablet) 1 mg PO DAILY [facility] Last Admin: 07/24/24 07:29 Dose: 1 mg Furosemide (Furosemide 20 Mg/2 Ml Vial) 20 mg IVPUSH BID@0900,1800 [facility]; Protocol Last Admin: 07/24/24 07:28 Dose: 20 mg Gabapentin (Gabapentin 300 Mg Capsule) 300 mg PO TID [facility] Last Admin: 07/24/24 07:31 Dose: 300 mg Haloperidol (Haloperidol 1 Mg Tablet) 2 mg PO BEDTIME [facility] Last Admin: 07/23/24 22:15 Dose: 2 mg Heparin Sodium (Porcine) (Heparin Sodium,Porcine 5,000 Unit/Ml Vial) 2,700 unit 40 unit/kg (2700 unit) IVPUSH PROTOCOL BOLUS PRN; Protocol PRN Reason: 40 unit/kg - Heparin Protocol Last Admin: 07/24/24 02:24 Dose: 2,700 unit Heparin Sodium (Porcine) (Heparin Sodium,Porcine 5,000 Unit/Ml Vial) 5,400 unit 80 unit/kg (5400 unit) IVPUSH PROTOCOL BOLUS PRN; Protocol PRN Reason: 80 unit/kg - Heparin Protocol Hydralazine HCl (Hydralazine Hcl 20 Mg/Ml Vial) 5 mg IVPUSH Q6H PRN PRN Reason: SBP > 180 Last Admin: 07/24/24 08:45 Dose: 5 mg Hydroxyzine HCl (Hydroxyzine Hcl 25 Mg Tablet) 25 mg PO DAILY [facility] Last Admin: 07/24/24 07:30 Dose: 25 mg Heparin Sodium/Sodium Chloride (Heparin Sodium,Porcine/1/2ns) 25,000 unit in 250 mls @ 0 mls/hr IVCONT .Q0M [facility]; Protocol Last Titration: 07/24/24 02:30 Dose: 14 units/kg/hr, 9.38 mls/hr Loratadine (Loratadine 10 Mg Tablet) 10 mg PO DAILY PRN PRN Reason: allergies Magnesium Hydroxide (Milk Of Magnesia 30 Ml Oral.Susp) 30 ml PO DAILY PRN PRN Reason: Constipation Melatonin (Melatonin 3 Mg Tablet) 3 mg PO BEDTIME [facility] Last Admin: 07/23/24 22:16 Dose: 3 mg Methylprednisolone Sodium Succinate (Methylprednisolone Sod Succ 40 Mg/Ml Vial) 20 mg IVPUSH BID [facility] Last Admin: 07/24/24 07:29 Dose: 20 mg Mirtazapine (Mirtazapine 7.5 Mg Tablet) 7.5 mg PO BEDTIME [facility] Last Admin: 07/23/24 22:16 Dose: 7.5 mg Multivitamins/Vitamin C (Multivitamin Tablet) 1 tab PO DAILY [facility] Last Admin: 07/24/24 07:30 Dose: 1 tab Nicotine Polacrilex (Nicotine Polacrilex Lozenge 4 Mg Lozenge) 4 mg BUCCAL Q2H PRN PRN Reason: Nicotine Cravings Omeprazole (Omeprazole 40 Mg Capsule.Dr) 40 mg PO DAILY@0630 [facility] Last Admin: 07/24/24 06:13 Dose: 40 mg Ondansetron HCl (Ondansetron Hcl 4 Mg/2 Ml Vial) 4 mg IVPUSH Q8H PRN PRN Reason: Nausea and Vomiting Polyethylene Glycol (Polyethylene Glycol 3350 17 Gm Powd.Pack) 17 gm PO DAILY PRN PRN Reason: Constipation Propranolol HCl (Propranolol Hcl La 60 Mg Cap.Sa.24h) 60 mg PO DAILY [facility]; Protocol Sodium Biphosphate/Sodium Phosphate (Sodium Phosphate,Oliver-Dibasic 133 Ml Enema) 118 ml NM DAILY PRN PRN Reason: Constipation Sodium Chloride (0.9 % Sodium Chloride Flush 3 Ml Syringe) 3 ml IVFLUSH QSHIFT [facility] Last Admin: 07/24/24 07:29 Dose: 3 ml Thiamine HCl (Thiamine Hcl 100 Mg Tablet) 100 mg PO DAILY [facility] Last Admin: 07/24/24 07:30 Dose: 100 mg Tiotropium Silverton (Tiotropium Silverton 2.5 Mcg 1 Puff/2.5 Mcg Mist.Inhal) 2 puff INHALE RDAILY [facility] Home Medications ?Medication ?Instructions ?Recorded ?Confirmed ?Last Taken ?Type acetaminophen 500 mg tablet 1,000 mg PO Q6H PRN dilia 07/23/24 07/23/24 Unknown History acetaminophen 650 mg rectal 650 mg NM Q4-6H PRN pain or fever 07/23/24 07/23/24 Unknown History suppository albuterol sulfate 90 mcg/actuation 2 puff inhalation Q4-6H PRN 07/23/24 07/23/24 Unknown History aerosol inhaler Wheezing amlodipine 2.5 mg tablet (Norvasc) 2.5 mg PO DAILY 07/23/24 07/23/24 Unknown History aspirin 81 mg tablet,delayed 81 mg PO DAILY 07/23/24 07/23/24 Unknown History release atorvastatin 40 mg tablet 40 mg PO BEDTIME 07/23/24 07/23/24 Unknown History benztropine 2 mg tablet 2 mg PO TID 07/23/24 07/23/24 Unknown History bisacodyl 10 mg rectal suppository 10 mg NM DAILY PRN Constipation 07/23/24 07/23/24 Unknown History cetirizine 10 mg tablet 10 mg PO DAILY PRN allergies 07/23/24 07/23/24 Unknown History docusate sodium 50 mg/5 mL oral 100 mg PO BID PRN Constipation 07/23/24 07/23/24 Unknown History liquid ferrous gluconate 324 mg (38 mg 324 mg PO DAILY 07/23/24 07/23/24 Unknown History iron) tablet fluticasone furoate 200 1 inh inhalation DAILY 07/23/24 07/23/24 Unknown History mcg-vilanterol 25 mcg/dose inhalation powder (Breo Ellipta) folic acid 1 mg tablet 1 mg PO DAILY 07/23/24 07/23/24 Unknown History gabapentin 300 mg capsule 300 mg PO TID 07/23/24 07/23/24 Unknown History haloperidol 2 mg tablet 2 mg PO BEDTIME 07/23/24 07/23/24 Unknown History hydroxyzine pamoate 25 mg capsule 25 mg PO DAILY 07/23/24 07/23/24 Unknown History ipratropium 0.5 mg-albuterol 3 mg 3 ml inhalation Q4H PRN Wheezing 07/23/24 07/23/24 Unknown History (2.5 mg base)/3 mL nebulization soln magnesium hydroxide 400 mg/5 mL 400 mg PO DAILY PRN Constipation 07/23/24 07/23/24 Unknown History oral suspension (Milk of Magnesia) melatonin 3 mg tablet 3 mg PO BEDTIME 07/23/24 07/23/24 Unknown History mirtazapine 7.5 mg tablet 7.5 mg PO BEDTIME 07/23/24 07/23/24 Unknown History multivitamin 1 tab PO DAILY 07/23/24 07/23/24 Unknown History nicotine (polacrilex) 4 mg buccal 4 mg buccal Q2-4H PRN Nicotine 07/23/24 07/23/24 Unknown History lozenge Cravings omeprazole 20 mg capsule,delayed 40 mg PO DAILY@0630 07/23/24 07/23/24 Unknown History release prednisone 10 mg tablet 10 mg PO DAILY 07/23/24 07/23/24 Unknown History propranolol 60 mg capsule,24 60 mg PO DAILY 07/23/24 07/23/24 Unknown History hr,extended release sodium phosphates 19 gram-7 118 ml NM DAILY PRN Constipation 07/23/24 07/23/24 Unknown History gram/118 mL enema (Fleet Enema) thiamine HCl (vitamin B1) 100 mg 100 mg PO DAILY 07/23/24 07/23/24 Unknown History tablet tiotropium bromide 18 mcg capsule 1 cap inhalation DAILY 07/23/24 07/23/24 Unknown History with inhalation device Physical Exam Vital Signs: Vital Signs: Last Vital Signs Temp 97.4 F 07/24/24 07:09 Pulse 58 07/24/24 07:09 Resp 11 L 07/24/24 07:09 BP 193/94 H 07/24/24 08:45 Pulse Ox 95 07/24/24 07:09 O2 Del Method Oxymask 07/24/24 07:09 O2 Flow Rate 3 07/24/24 07:09 BMI result Body Mass Index 23.1 Const: General: cooperative, alert, awake, in distress moderate and respiratory and anxious Nutritional Appearance: thin Orientation/consciousness: patient oriented x3 HEENT: Head: Yes normocephalic and Yes atraumatic Neck: Neck: Yes trachea midline, Yes supple and Yes no JVD Resp: Effort & Inspection: respiratory distress Auscultation: wheezes scattered wheezes and throughout Cardio: Jugular venous distension: no JVD Rate: regular rate Rhythm: regular rhythm Heart sounds: S1 normal heart sound present, S2 normal heart sound present, no click, no gallops, no murmurs and no rubs GI: Auscultation: normal bowel sounds Skin: General skin exam: no rashes or lesions noted Neuro: General: patient oriented x3 and no focal motor deficits Extrem: General: Yes no clubbing, cyanosis or edema Psych: Appearance: grossly normal Affect: Anxious affect present Objective Labs and Meds 07/24/24 04:10 07/24/24 04:11 Lab results: Laboratory Results - last 24 hr 07/23/24 07/23/24 07/23/24 09:52 09:53 10:49 WBC RBC Hgb Hct MCV MCH MCHC RDW Plt Count MPV Immature Gran % (Auto) Neut % (Auto) Lymph % (Auto) Oliver % (Auto) Eos % (Auto) Baso % (Auto) Lymph # (Auto) Oliver # (Auto) Eos # (Auto) Baso # (Auto) Abs Immat Gran (auto) Absolute Neuts (auto) Absolute Nucleated RBC Nucleated RBC % (auto) Smear Tech's Comments Hold Purple Top PT INR APTT aPTT Heparin Protocol VBG pH 7.46 H VBG pCO2 43 VBG pO2 66 VBG HCO3 31 H VBG O2 Saturation 90.0 VBG Base Excess 7.1 Sodium 136 Potassium 3.7 Chloride 100 Carbon Dioxide 27 Anion Gap 13 BUN 30 H Creatinine 1.30 Estim Creat Clear Calc 54.3 Estimated GFR 56 Random Glucose 120 H Lactic Acid 2.9 H* Lactic Acid F/U @ 2Hr Calcium 8.3 L Total Bilirubin 0.6 Direct Bilirubin 0.2 AST 58 H ALT 57 H Alkaline Phosphatase 63 Troponin I High Sens B-Natriuretic Peptide 1959 H Total Protein 5.8 L Albumin 3.1 L Influenza Type A (PCR) NEGATIVE Influenza Type B (PCR) NEGATIVE RSV RNA Qual (PCR) NEGATIVE SARS-CoV-2 RNA (RT-PCR) NEGATIVE 07/23/24 07/23/24 07/23/24 10:50 10:54 11:51 WBC 15.7 H RBC 3.94 L Hgb 12.0 L Hct 36.4 L MCV 92.4 MCH 30.5 MCHC 33.0 RDW 16.5 H Plt Count 179 MPV 10.3 Immature Gran % (Auto) 1.1 H Neut % (Auto) 92.3 H Lymph % (Auto) 2.7 L Oliver % (Auto) 3.7 Eos % (Auto) 0.1 Baso % (Auto) 0.1 Lymph # (Auto) 0.4 L Oliver # (Auto) 0.6 Eos # (Auto) 0.0 Baso # (Auto) 0.0 Abs Immat Gran (auto) 0.17 H Absolute Neuts (auto) 14.5 H Absolute Nucleated RBC 0.000 Nucleated RBC % (auto) 0.0 Smear Tech's Comments VERIFIED Hold Purple Top PT 9.9 L INR 0.9 APTT 25.6 L aPTT Heparin Protocol VBG pH 7.46 H VBG pCO2 43 VBG pO2 66 VBG HCO3 31 H VBG O2 Saturation 90.0 VBG Base Excess 7.1 Sodium Potassium Chloride Carbon Dioxide Anion Gap BUN Creatinine Estim Creat Clear Calc Estimated GFR Random Glucose Lactic Acid Lactic Acid F/U @ 2Hr Calcium Total Bilirubin Direct Bilirubin AST ALT Alkaline Phosphatase Troponin I High Sens B-Natriuretic Peptide Total Protein Albumin Influenza Type A (PCR) Influenza Type B (PCR) RSV RNA Qual (PCR) SARS-CoV-2 RNA (RT-PCR) 07/23/24 07/23/24 07/23/24 12:04 17:06 20:04 WBC RBC Hgb Hct MCV MCH MCHC RDW Plt Count MPV Immature Gran % (Auto) Neut % (Auto) Lymph % (Auto) Oliver % (Auto) Eos % (Auto) Baso % (Auto) Lymph # (Auto) Oliver # (Auto) Eos # (Auto) Baso # (Auto) Abs Immat Gran (auto) Absolute Neuts (auto) Absolute Nucleated RBC Nucleated RBC % (auto) Smear Tech's Comments Hold Purple Top SEE NOTE PT INR APTT aPTT Heparin Protocol VBG pH VBG pCO2 VBG pO2 VBG HCO3 VBG O2 Saturation VBG Base Excess Sodium Potassium Chloride Carbon Dioxide Anion Gap BUN Creatinine Estim Creat Clear Calc Estimated GFR Random Glucose Lactic Acid Lactic Acid F/U @ 2Hr 1.8 Calcium Total Bilirubin Direct Bilirubin AST ALT Alkaline Phosphatase Troponin I High Sens 235.1 H* 237.9 H* B-Natriuretic Peptide Total Protein Albumin Influenza Type A (PCR) Influenza Type B (PCR) RSV RNA Qual (PCR) SARS-CoV-2 RNA (RT-PCR) 07/24/24 07/24/24 07/24/24 01:12 04:10 04:11 WBC 9.9 RBC 3.55 L Hgb 10.7 L Hct 33.3 L MCV 93.8 MCH 30.1 MCHC 32.1 RDW 16.7 H Plt Count 163 MPV 10.5 Immature Gran % (Auto) Neut % (Auto) Lymph % (Auto) Oliver % (Auto) Eos % (Auto) Baso % (Auto) Lymph # (Auto) Oliver # (Auto) Eos # (Auto) Baso # (Auto) Abs Immat Gran (auto) Absolute Neuts (auto) Absolute Nucleated RBC 0.000 Nucleated RBC % (auto) 0.0 Smear Tech's Comments Hold Purple Top PT INR APTT aPTT Heparin Protocol 52.6 L VBG pH VBG pCO2 VBG pO2 VBG HCO3 VBG O2 Saturation VBG Base Excess Sodium 138 Potassium 3.4 Chloride 101 Carbon Dioxide 27 Anion Gap 13 BUN 36 H Creatinine 1.24 Estim Creat Clear Calc 57.0 Estimated GFR 59 Random Glucose 103 Lactic Acid Lactic Acid F/U @ 2Hr Calcium 8.0 L Total Bilirubin Direct Bilirubin AST ALT Alkaline Phosphatase Troponin I High Sens 118.5 H* D B-Natriuretic Peptide Total Protein Albumin Influenza Type A (PCR) Influenza Type B (PCR) RSV RNA Qual (PCR) SARS-CoV-2 RNA (RT-PCR) EKG shows normal sinus rhythm with normal EKG Imaging Radiologist's impression: Impressions Chest X-Ray 07/23/24 08:41 IMPRESSION: 1. Hyperaerated lung parenchyma with bibasilar parenchymal opacities suspicious for pneumonia in the appropriate clinical setting. 2. Haziness of the interstitium with Dejan B lines in the lung bases may indicate associated mild interstitial pulmonary edema. Electronically signed by: Osvaldo Mancera MD 07/23/2024 11:03 AM EDT RP Assessment and Plan (1) Acute hypoxemic respiratory failure: Status: Acute acute hypoxemic respiratory failure in his middle-aged man with known history of severe COPD possibly oxygen requiring, most likely due to COPD exacerbation. Component of congestive heart failure related to acute hypoxemic respiratory failure is likely although clinically today does not appear to be in any form of heart failure. His elevated BNP and troponins are most likely related to metabolic acidosis and possibly RV strain. Stress-induced cardiomyopathy is also likely. This is not suggestive of acute coronary syndrome. There was no chest pain and no EKG changes suggestive of ischemia. I would definitely perform an echocardiogram to evaluate for LV systolic and diastolic function in his well as to evaluate for wall motion abnormality in RV function. However his treatment should focus on treating his acute COPD exacerbation with bronchodilators steroids and antibiotics. I do not think he requires IV heparin at this point time. Aspirin can be considered. Continue treat his blood pressure in can use nitro paste as well as amlodipine for treating his blood pressure acutely. I think he will also benefit from antianxiety medications. I would hold off on diuretics at this point in time. Will sign of the case. Thank you for allowing me to partake in his care Procedures Date of Service Date of Service: 07/24/24
[2024-07-24 09:10] LABS: PTT Heparin Drip 58.1 SEC (53-77.9)
[2024-07-24] MEDS: amLODIPine Besylate 2.5 MG TABLET PO (09:38)
--- NOTE | 2024-07-24 10:01 | PC.NURSE ---
Paused heparin drip per [employer]ER[employer] ECONOMIST Jackie verbal order during rounds at 09:20 07/24/24.
[2024-07-24] MEDS: Tiotropium Bromide 2.5 mcg 1 PUFF/2.5 MCG MIST.INHAL 2 PUFF INHALE (11:26)
[2024-07-24] MEDS: Fluticasone/Vilanterol 200/25 BLST.W.DEV 1 PUFF INHALE (11:26)
[2024-07-24] MEDS: Propranolol HCL LA 60 MG CAP.SA.24H PO (12:22)
--- NOTE | 2024-07-24 13:04 | HO.PM.IMPN ---
Subjective Subjective Date of Service: 07/24/24 Interval History: seen and examined this morning Follow-up for COPD, pneumonia Shortness of the breath improving, denies cough Review of Systems Review of Systems: Yes all other systems are reviewed and are negative Constitutional Constitutional: Denies chills and Denies fever(s) Cardiovascular Cardiovascular: Denies chest pain, Denies palpitations and Denies dyspnea Respiratory Respiratory: Denies cough and Denies dyspnea Endocrine Endocrine: Denies palpitations Physical Exam Vital Signs: Vital Signs: Last Vital Signs Temp 98.0 F 07/24/24 12:00 Pulse 63 07/24/24 12:00 Resp 18 07/24/24 12:00 BP 197/93 H 07/24/24 12:00 Pulse Ox 98 07/24/24 12:00 O2 Del Method Oxymask 07/24/24 12:00 O2 Flow Rate 2 07/24/24 12:00 BMI result Body Mass Index 23.5 Const: General: cooperative, comfortable, alert and awake Nutritional Appearance: average body habitus Orientation/consciousness: patient oriented x3 Resp: Effort & Inspection: normal respiratory effort, able to speak in complete sentences, no respiratory distress and no use of accessory muscles Cardio: Rate: regular rate GI: Inspection: No distended Palpation (GI): Soft to palpation and nontender Neuro: General: patient oriented x3, moves all extremities and CN's II-XI intact bilaterally Extrem: General: Yes no pedal edema Objective Data Active Medications Acetaminophen (Acetaminophen Supp 650 Mg Supp.Rect) 650 mg SC Q4H PRN PRN Reason: pain or fever Acetaminophen (Acetaminophen 325 Mg Tablet) 975 mg PO Q6H PRN PRN Reason: dilia Albuterol Sulfate (Albuterol Sulfate 90 Mcg 8 Gm Inhaler) 2 puff INHALE Q4H PRN PRN Reason: Wheezing Albuterol/Ipratropium (Albuterol/Iprat 2.5/0.5mg 3 Ml Ampul.Neb) 3 ml INHALE Q4H PRN PRN Reason: Shortness of Breath/Wheezing Amlodipine Besylate (Amlodipine Besylate 2.5 Mg Tablet) 2.5 mg PO DAILY [facility]; Protocol Last Admin: 07/24/24 09:38 Dose: 2.5 mg Documented By: DEMI Aspirin (Aspirin Enteric Coated 81 Mg Tablet.) 81 mg PO DAILY [facility] Last Admin: 07/24/24 07:30 Dose: 81 mg Documented By: VIRGINIA Atorvastatin Calcium (Atorvastatin Calcium 40 Mg Tablet) 40 mg PO BEDTIME [facility] Last Admin: 07/23/24 22:16 Dose: 40 mg Documented By: KALE Benztropine Mesylate (Benztropine Mesylate 1 Mg Tablet) 2 mg PO TID [facility] Last Admin: 07/24/24 07:27 Dose: 2 mg Documented By: VIRGINIA Bisacodyl (Bisacodyl 10 Mg Supp.Rect) 10 mg SC DAILY PRN PRN Reason: Constipation Calcium Carbonate (Calcium Carbonate 750 Mg Tab.Chew) 750 mg PO Q4H PRN PRN Reason: Heartburn Ceftriaxone Sodium (Ceftriaxone Sodium 1 Gm Vial) 1 gm IVPUSH DAILY [facility] Last Admin: 07/24/24 07:27 Dose: 1 gm Documented By: VIRGINIA Docusate Sodium (Docusate Sodium 100 Mg/10 Ml Liquid) 100 mg PO BID PRN PRN Reason: Constipation Doxycycline Monohydrate (Doxycycline Monohydrate 100 Mg Capsule) 100 mg PO BID [facility] Last Admin: 07/24/24 07:28 Dose: 100 mg Documented By: VIRGINIA Ferrous Sulfate (Ferrous Sulfate 324 Mg Tablet.) 324 mg PO DAILY [facility] Last Admin: 07/24/24 07:30 Dose: 324 mg Documented By: VIRGINIA Fluticasone/Vilanterol (Fluticasone/Vilanterol 200/25 Blst.W.Dev) 1 puff INHALE RDAILY [facility] Last Admin: 07/24/24 11:26 Dose: 1 puff Documented By: RAIMUNDO Folic Acid (Folic Acid 1 Mg Tablet) 1 mg PO DAILY [facility] Last Admin: 07/24/24 07:29 Dose: 1 mg Documented By: VIRGINIA Gabapentin (Gabapentin 300 Mg Capsule) 300 mg PO TID [facility] Last Admin: 07/24/24 07:31 Dose: 300 mg Documented By: VIRGINIA Haloperidol (Haloperidol 1 Mg Tablet) 2 mg PO BEDTIME [facility] Last Admin: 07/23/24 22:15 Dose: 2 mg Documented By: KALE Hydralazine HCl (Hydralazine Hcl 20 Mg/Ml Vial) 5 mg IVPUSH Q6H PRN PRN Reason: SBP > 180 Last Admin: 07/24/24 08:45 Dose: 5 mg Documented By: VIRGINIA Hydroxyzine HCl (Hydroxyzine Hcl 25 Mg Tablet) 25 mg PO DAILY [facility] Last Admin: 07/24/24 07:30 Dose: 25 mg Documented By: VIRGINIA Loratadine (Loratadine 10 Mg Tablet) 10 mg PO DAILY PRN PRN Reason: allergies Magnesium Hydroxide (Milk Of Magnesia 30 Ml Oral.Susp) 30 ml PO DAILY PRN PRN Reason: Constipation Melatonin (Melatonin 3 Mg Tablet) 3 mg PO BEDTIME [facility] Last Admin: 07/23/24 22:16 Dose: 3 mg Documented By: KALE Methylprednisolone Sodium Succinate (Methylprednisolone Sod Succ 40 Mg/Ml Vial) 20 mg IVPUSH BID [facility] Last Admin: 07/24/24 07:29 Dose: 20 mg Documented By: VIRGINIA Mirtazapine (Mirtazapine 7.5 Mg Tablet) 7.5 mg PO BEDTIME [facility] Last Admin: 07/23/24 22:16 Dose: 7.5 mg Documented By: KALE Multivitamins/Vitamin C (Multivitamin Tablet) 1 tab PO DAILY [facility] Last Admin: 07/24/24 07:30 Dose: 1 tab Documented By: VIRGINIA Nicotine Polacrilex (Nicotine Polacrilex Lozenge 4 Mg Lozenge) 4 mg BUCCAL Q2H PRN PRN Reason: Nicotine Cravings Omeprazole (Omeprazole 40 Mg Capsule.Dr) 40 mg PO DAILY@0630 [facility] Last Admin: 07/24/24 06:13 Dose: 40 mg Documented By: DOLORES Ondansetron HCl (Ondansetron Hcl 4 Mg/2 Ml Vial) 4 mg IVPUSH Q8H PRN PRN Reason: Nausea and Vomiting Polyethylene Glycol (Polyethylene Glycol 3350 17 Gm Powd.Pack) 17 gm PO DAILY PRN PRN Reason: Constipation Propranolol HCl (Propranolol Hcl La 60 Mg Cap.Sa.24h) 60 mg PO DAILY [facility]; Protocol Last Admin: 07/24/24 12:22 Dose: 60 mg Documented By: DEMI Sodium Biphosphate/Sodium Phosphate (Sodium Phosphate,[place]-Dibasic 133 Ml Enema) 118 ml SC DAILY PRN PRN Reason: Constipation Sodium Chloride (0.9 % Sodium Chloride Flush 3 Ml Syringe) 3 ml IVFLUSH QSHIFT [facility] Last Admin: 07/24/24 07:29 Dose: 3 ml Documented By: VIRGINIA Thiamine HCl (Thiamine Hcl 100 Mg Tablet) 100 mg PO DAILY [facility] Last Admin: 07/24/24 07:30 Dose: 100 mg Documented By: VIRGINIA Tiotropium [place] (Tiotropium [place] 2.5 Mcg 1 Puff/2.5 Mcg Mist.Inhal) 2 puff INHALE RDAILY [facility] Last Admin: 07/24/24 11:26 Dose: 2 puff Documented By: RAIMUNDO Labs 07/24/24 04:10 07/24/24 04:11 Labs: Laboratory Results - last 24 hr 07/23/24 07/23/24 07/23/24 10:50 17:06 20:04 MCV MCH MCHC RDW Plt Count MPV Absolute Nucleated RBC Nucleated RBC % (auto) Smear Tech's Comments VERIFIED Hold Purple Top SEE NOTE aPTT Heparin Protocol Anion Gap Estim Creat Clear Calc Estimated GFR Random Glucose Calcium Troponin I High Sens 235.1 H* 237.9 H* 07/24/24 07/24/24 07/24/24 01:12 04:10 04:11 MCV 93.8 MCH 30.1 MCHC 32.1 RDW 16.7 H Plt Count 163 MPV 10.5 Absolute Nucleated RBC 0.000 Nucleated RBC % (auto) 0.0 Smear Tech's Comments Hold Purple Top aPTT Heparin Protocol 52.6 L Anion Gap 13 Estim Creat Clear Calc 57.0 Estimated GFR 59 Random Glucose 103 Calcium 8.0 L Troponin I High Sens 118.5 H* D 07/24/24 08:46 MCV MCH MCHC RDW Plt Count MPV Absolute Nucleated RBC Nucleated RBC % (auto) Smear Tech's Comments Hold Purple Top aPTT Heparin Protocol 58.1 Anion Gap Estim Creat Clear Calc Estimated GFR Random Glucose Calcium Troponin I High Sens Microbiology Microbiology Results: Microbiology 07/23/24 09:52 Blood Culture - Preliminary Blood - Venous No growth after 24 hours. 07/23/24 09:52 Blood Culture - Preliminary Blood - Venous No growth after 24 hours. Assessment and Plan (1) Acute hypoxemic respiratory failure: Status: Acute Plan This is a 63/m with copd here with acute respiratory distress and found to have PNA, COPD exacerbation and possible heart failure. Acute on chronic hypoxic respiratory failure d/t copd exacerbation and pneumonia continue IV ceftriaxone and doxy bronchodilators and steroid for copd exacerbation seen by Cardiology, no acute CHF; stop diuretics NSTEMI elevated cardiac enzymes likely due to demand, stop IV heparin echocardiogram pending continue aspirin, statin Acute lactic acidosis, not due to sepsis HLD lipitor HTN continue home meds, increase dose of Norvasc p.r.n. hydralazine as needed Schizophrenia continue home meds DVT prophylaxis Lovenox Full code patient requires ongoing inpatient stay for management pneumonia and COPD exacerbation Quality Stroke Does the patient have a stroke diagnosis?: No VTE Prior VTE?: No VTE Risk Level:: Medical - moderate - high VTE Device Contraindication: Treatment Not Indicated VTE Drug Contraindication: N/A - Med Ordered
[2024-07-24] MEDS: amLODIPine Besylate 5 MG TABLET PO (13:48)
[2024-07-24] MEDS: Enoxaparin Sodium 40 MG/0.4 ML SYRINGE SUBCUT (13:48)
--- NOTE | 2024-07-24 15:08 | MHC.CM.PN ---
Pt resides buttermilk drier operator at [facility], his PCP is Mario Alberto Goff, DCP: return to SNF via BLS. CM to follow for DC needs.
[2024-07-24] MEDS: Mirtazapine 7.5 MG TABLET PO (23:21)
[2024-07-24] MEDS: Melatonin 3 MG TABLET PO (23:21)
[2024-07-24] MEDS: HaloperidoL 1 MG TABLET 2 MG PO (23:22)
[2024-07-24] MEDS: Atorvastatin Calcium 40 MG TABLET PO (23:22)
[2024-07-25] VITALS (11 sets, daily range): BP systolic 140–189; BP diastolic 70–98; PULSE 54–78; RESP 16–20; TEMP 36–37.2; O2SAT 95–98
[2024-07-25] MEDS: Omeprazole 40 MG CAPSULE.DR PO (05:58)
[2024-07-25] MEDS: hydrALAZINE HCl 20 MG/ML VIAL 5 MG IVPUSH (06:09)
[2024-07-25] MEDS: cefTRIAXone sodium 1 GM VIAL IVPUSH (07:40)
[2024-07-25] MEDS: methylPREDNISolone Sod Succ 40 MG/ML VIAL 20 MG IVPUSH ×2 (07:41→22:23)
[2024-07-25] MEDS: hydrOXYzine HCL 25 MG TABLET PO (07:41)
[2024-07-25] MEDS: Thiamine HCL 100 MG TABLET PO (07:41)
[2024-07-25] MEDS: 0.9 % Sodium Chloride Flush 3 ML SYRINGE IVFLUSH ×2 (07:41→22:24)
[2024-07-25] MEDS: Gabapentin 300 MG CAPSULE PO ×3 (07:41→22:24)
[2024-07-25] MEDS: Folic Acid 1 MG TABLET PO (07:41)
[2024-07-25] MEDS: Multivitamin TABLET 1 TAB PO (07:41)
[2024-07-25] MEDS: Benztropine Mesylate 1 MG TABLET 2 MG PO ×3 (07:41→22:23)
[2024-07-25] MEDS: Doxycycline Monohydrate 100 MG CAPSULE PO ×2 (07:41→22:24)
[2024-07-25] MEDS: Ferrous Sulfate 324 MG TABLET.DR PO (07:42)
[2024-07-25] MEDS: amLODIPine Besylate 5 MG TABLET PO ×2 (07:42→16:06)
[2024-07-25] MEDS: Propranolol HCL LA 60 MG CAP.SA.24H PO (07:42)
[2024-07-25] MEDS: Aspirin Enteric Coated 81 MG TABLET.DR PO (07:42)
[2024-07-25] MEDS: Tiotropium Bromide 2.5 mcg 1 PUFF/2.5 MCG MIST.INHAL 2 PUFF INHALE (08:12)
[2024-07-25 08:15] LABS: Alanine Aminotransferase 26 U/L (0-40); Albumin Level 2.8 g/dL (3.5-5.0); Alkaline Phosphatase 47 U/L (39-117); Aspartate Amino Transferase 27 U/L (5-37); Bilirubin Direct 0.2 mg/dL (0.0-0.5); Bilirubin Total 0.6 mg/dL (0.0-1.0); Total Protein 5.4 g/dL (6.5-8.0)
--- NOTE | 2024-07-25 13:25 | MHC.CM.PN ---
Per rounds, pt. is not ready to DC, he requires continued care for pneumonia and COPD exacerbation. CM will follow for DC needs.
--- NOTE | 2024-07-25 15:56 | P.PNIM_ITS ---
Subjective Subjective Date of Service: 07/25/24 Interval History: Seen and examined this morning Follow-up for pneumonia/COPD exacerbation Patient reports having some nausea this morning, denies abdominal pain Feels his breathing has improved somewhat Review of Systems Review of Systems: Yes all other systems are reviewed and are negative Constitutional Constitutional: Denies chills and Denies fever(s) Physical Exam 2 Vital Signs: Vital Signs: Last Vital Signs Temp 98.9 F 07/25/24 15:17 Pulse 69 07/25/24 15:17 Resp 18 07/25/24 15:17 BP 189/93 H 07/25/24 15:17 Pulse Ox 96 07/25/24 15:17 O2 Del Method Room Air 07/25/24 15:17 O2 Flow Rate 3 07/25/24 07:19 BMI result Body Mass Index 23.5 Const: General: cooperative, comfortable, alert and awake Nutritional Appearance: average body habitus Orientation/consciousness: patient oriented x3 Resp: Other: b/l expiratory wheeze Effort & Inspection: normal respiratory effort, able to speak in complete sentences, no respiratory distress and no use of accessory muscles Cardio: Rate: regular rate GI: Inspection: No distended Palpation (GI): Soft to palpation and nontender Skin: Other: abdominal bruise RLQ bruise of left elbow Neuro: General: patient oriented x3, moves all extremities and CN's II-XI intact bilaterally Extrem: General: Yes no pedal edema Objective Data Active Medications Acetaminophen (Acetaminophen Supp 650 Mg Supp.Rect) 650 mg PA Q4H PRN PRN Reason: pain or fever Acetaminophen (Acetaminophen 325 Mg Tablet) 975 mg PO Q6H PRN PRN Reason: dilia Albuterol Sulfate (Albuterol Sulfate 90 Mcg 8 Gm Inhaler) 2 puff INHALE Q4H PRN PRN Reason: Wheezing Albuterol/Ipratropium (Albuterol/Iprat 2.5/0.5mg 3 Ml Ampul.Neb) 3 ml INHALE Q4H PRN PRN Reason: Shortness of Breath/Wheezing Amlodipine Besylate (Amlodipine Besylate 5 Mg Tablet) 5 mg PO ONCE ONE; Protocol Stop: 07/25/24 15:55 Amlodipine Besylate (Amlodipine Besylate 10 Mg Tablet) 10 mg PO DAILY [facility]; Protocol Aspirin (Aspirin Enteric Coated 81 Mg Tablet.Dr) 81 mg PO DAILY [facility] Last Admin: 07/25/24 07:42 Dose: 81 mg Documented By: DEMI Atorvastatin Calcium (Atorvastatin Calcium 40 Mg Tablet) 40 mg PO BEDTIME [facility] Last Admin: 07/24/24 23:22 Dose: 40 mg Documented By: HARINDER Benztropine Mesylate (Benztropine Mesylate 1 Mg Tablet) 2 mg PO TID [facility] Last Admin: 07/25/24 15:41 Dose: 2 mg Documented By: DEMI Bisacodyl (Bisacodyl 10 Mg Supp.Rect) 10 mg PA DAILY PRN PRN Reason: Constipation Calcium Carbonate (Calcium Carbonate 750 Mg Tab.Chew) 750 mg PO Q4H PRN PRN Reason: Heartburn Ceftriaxone Sodium (Ceftriaxone Sodium 1 Gm Vial) 1 gm IVPUSH DAILY [facility] Last Admin: 07/25/24 07:40 Dose: 1 gm Documented By: DEMI Docusate Sodium (Docusate Sodium 100 Mg/10 Ml Liquid) 100 mg PO BID PRN PRN Reason: Constipation Doxycycline Monohydrate (Doxycycline Monohydrate 100 Mg Capsule) 100 mg PO BID [facility] Last Admin: 07/25/24 07:41 Dose: 100 mg Documented By: DEMI Enoxaparin Sodium (Enoxaparin Sodium 40 Mg/0.4 Ml Syringe) 40 mg SUBCUT Q24H [facility] Last Admin: 07/25/24 15:51 Dose: Not Given Documented By: DEMI Non-Admin Reason: Physician Held Med Ferrous Sulfate (Ferrous Sulfate 324 Mg Tablet.) 324 mg PO DAILY [facility] Last Admin: 07/25/24 07:42 Dose: 324 mg Documented By: DEMI Fluticasone/Vilanterol (Fluticasone/Vilanterol 200/25 Blst.W.Dev) 1 puff INHALE RDAILY [facility] Last Admin: 07/25/24 08:12 Dose: Not Given Documented By: ANGELA Non-Admin Reason: Med Not Available Folic Acid (Folic Acid 1 Mg Tablet) 1 mg PO DAILY [facility] Last Admin: 07/25/24 07:41 Dose: 1 mg Documented By: DEMI Gabapentin (Gabapentin 300 Mg Capsule) 300 mg PO TID [facility] Last Admin: 07/25/24 15:41 Dose: 300 mg Documented By: DEMI Haloperidol (Haloperidol 1 Mg Tablet) 2 mg PO BEDTIME [facility] Last Admin: 07/24/24 23:22 Dose: 2 mg Documented By: HARINDER Hydralazine HCl (Hydralazine Hcl 20 Mg/Ml Vial) 5 mg IVPUSH Q6H PRN PRN Reason: SBP > 180 Last Admin: 07/25/24 06:09 Dose: 5 mg Documented By: HARINDER Hydroxyzine HCl (Hydroxyzine Hcl 25 Mg Tablet) 25 mg PO DAILY [facility] Last Admin: 07/25/24 07:41 Dose: 25 mg Documented By: DEMI Loratadine (Loratadine 10 Mg Tablet) 10 mg PO DAILY PRN PRN Reason: allergies Magnesium Hydroxide (Milk Of Magnesia 30 Ml Oral.Susp) 30 ml PO DAILY PRN PRN Reason: Constipation Melatonin (Melatonin 3 Mg Tablet) 3 mg PO BEDTIME [facility] Last Admin: 07/24/24 23:21 Dose: 3 mg Documented By: HARINDER Methylprednisolone Sodium Succinate (Methylprednisolone Sod Succ 40 Mg/Ml Vial) 20 mg IVPUSH BID [facility] Last Admin: 07/25/24 07:41 Dose: 20 mg Documented By: DEMI Mirtazapine (Mirtazapine 7.5 Mg Tablet) 7.5 mg PO BEDTIME [facility] Last Admin: 07/24/24 23:21 Dose: 7.5 mg Documented By: HARINDER Multivitamins/Vitamin C (Multivitamin Tablet) 1 tab PO DAILY [facility] Last Admin: 07/25/24 07:41 Dose: 1 tab Documented By: DEMI Nicotine Polacrilex (Nicotine Polacrilex Lozenge 4 Mg Lozenge) 4 mg BUCCAL Q2H PRN PRN Reason: Nicotine Cravings Omeprazole (Omeprazole 40 Mg Capsule.Dr) 40 mg PO DAILY@0630 [facility] Last Admin: 07/25/24 05:58 Dose: 40 mg Documented By: HARINDER Ondansetron HCl (Ondansetron Hcl 4 Mg/2 Ml Vial) 4 mg IVPUSH Q8H PRN PRN Reason: Nausea and Vomiting Polyethylene Glycol (Polyethylene Glycol 3350 17 Gm Powd.Pack) 17 gm PO DAILY PRN PRN Reason: Constipation Propranolol HCl (Propranolol Hcl La 60 Mg Cap.Sa.24h) 60 mg PO DAILY [facility]; Protocol Last Admin: 07/25/24 07:42 Dose: 60 mg Documented By: DEMI Sodium Biphosphate/Sodium Phosphate (Sodium Phosphate,[place]-Dibasic 133 Ml Enema) 118 ml PA DAILY PRN PRN Reason: Constipation Sodium Chloride (0.9 % Sodium Chloride Flush 3 Ml Syringe) 3 ml IVFLUSH QSHIFT [facility] Last Admin: 07/25/24 07:41 Dose: 3 ml Documented By: DEMI Thiamine HCl (Thiamine Hcl 100 Mg Tablet) 100 mg PO DAILY [facility] Last Admin: 07/25/24 07:41 Dose: 100 mg Documented By: DEMI Tiotropium [place] (Tiotropium [place] 2.5 Mcg 1 Puff/2.5 Mcg Mist.Inhal) 2 puff INHALE RDAILY [facility] Last Admin: 07/25/24 08:12 Dose: 2 puff Documented By: ANGELA Labs 07/24/24 04:10 07/24/24 04:11 Labs: Laboratory Results - last 24 hr 07/25/24 07:39 Total Bilirubin 0.6 Direct Bilirubin 0.2 AST 27 ALT 26 Alkaline Phosphatase 47 Total Protein 5.4 L Albumin 2.8 L Microbiology Microbiology Results: Microbiology 07/23/24 09:52 Blood Culture - Preliminary Blood - Venous No growth after 48 hours. 07/23/24 09:52 Blood Culture - Preliminary Blood - Venous No growth after 48 hours. Assessment and Plan (1) Pneumonia: Status: Acute Plan This is a 63/m with copd here with acute respiratory distress and found to have PNA, COPD exacerbation and possible heart failure. Acute on chronic hypoxic respiratory failure d/t copd exacerbation and pneumonia continue IV ceftriaxone and doxy bronchodilators and steroid for copd exacerbation seen by Cardiology, no acute CHF; stop diuretics NSTEMI elevated cardiac enzymes likely due to demand, stop IV heparin echocardiogram with preserved ejection fraction, impaired relaxation, no wall motion abnormality continue aspirin, statin Acute lactic acidosis, not due to sepsis Resolved Mild transaminitis Resolved HLD lipitor HTN continue home meds, will further increase Norvasc to 10 mg p.r.n. hydralazine as needed Schizophrenia continue home meds DVT prophylaxis Lovenox - will hold due to new bruising noted Full code patient requires ongoing inpatient stay for management pneumonia and COPD exacerbation Quality Stroke Does the patient have a stroke diagnosis?: No VTE Prior VTE?: No VTE Risk Level:: Medical - moderate - high VTE Device Contraindication: Treatment Not Indicated VTE Drug Contraindication: N/A - Med Ordered
--- NOTE | 2024-07-25 20:27 | HO.SKINPHOTO ---
Location: Category: Stage: Length: Width: Depth: cm Location: Category: Stage: Length: Width: Depth: cm Location: Category: Stage: Length: Width: Depth: cm Location: Category: Stage: Length: Width: Depth: cm Location: Category: Stage: Length: Width: Depth: cm Location: Category: Stage: Length: Width: Depth: cm right forearm right lower quadrant of abdomen
[2024-07-25] MEDS: Mirtazapine 7.5 MG TABLET PO (22:23)
[2024-07-25] MEDS: Melatonin 3 MG TABLET PO (22:23)
[2024-07-25] MEDS: HaloperidoL 1 MG TABLET 2 MG PO (22:24)
[2024-07-25] MEDS: Atorvastatin Calcium 40 MG TABLET PO (22:24)
[2024-07-26] VITALS (8 sets, daily range): BP systolic 109–178; BP diastolic 72–90; PULSE 59–69; RESP 16–18; TEMP 36–37.2; O2SAT 92–97
[2024-07-26 06:33] LABS: Hematocrit 35.8 % (42.0-52.0); Hemoglobin 11.4 g/dl (14.0-18.0); Mean Corpuscular HGB Conc 31.8 g/dl (31.0-36.0); Mean Corpuscular Hemoglobin 30.2 pg (27.0-33.0); Mean Corpuscular Volume 94.7 fL (80.0-98.0); Mean Platelet Volume 10.1 fL (9.4-12.4); Platelet Count 168 X10*3/uL (160-400); Red Blood Count 3.78 X10*6/uL (4.60-5.80); Red Cell Distribution Width 16.9 % (11.0-16.0); White Blood Count 8.9 X10*3/uL (4.8-10.8)
[2024-07-26] MEDS: Omeprazole 40 MG CAPSULE.DR PO (06:45)
[2024-07-26 06:47] LABS: Anion Gap 13 (12-20); Blood Urea Nitrogen 43 mg/dL (9-16); Calcium 8.4 mg/dL (8.4-10.2); Carbon Dioxide 27 mmol/L (22-29); Chloride 101 mmol/L (96-108); Creatinine Clr Calc Pharmacy 42.5; Estimated Glomerular Filt Rate 42; Glucose Random 139 mg/dL (60-115); Potassium 4.2 mmol/L (3.3-5.1); Sodium 137 mmol/L (135-145)
[2024-07-26] MEDS: Ferrous Sulfate 324 MG TABLET.DR PO (07:50)
[2024-07-26] MEDS: Gabapentin 300 MG CAPSULE PO ×3 (07:50→21:02)
[2024-07-26] MEDS: Thiamine HCL 100 MG TABLET PO (07:50)
[2024-07-26] MEDS: Folic Acid 1 MG TABLET PO (07:50)
[2024-07-26] MEDS: Doxycycline Monohydrate 100 MG CAPSULE PO ×2 (07:50→21:02)
[2024-07-26] MEDS: Aspirin Enteric Coated 81 MG TABLET.DR PO (07:50)
[2024-07-26] MEDS: hydrOXYzine HCL 25 MG TABLET PO (07:50)
[2024-07-26] MEDS: methylPREDNISolone Sod Succ 40 MG/ML VIAL 20 MG IVPUSH (07:50)
[2024-07-26] MEDS: amLODIPine Besylate 10 MG TABLET PO (07:50)
[2024-07-26] MEDS: cefTRIAXone sodium 1 GM VIAL IVPUSH (07:51)
[2024-07-26] MEDS: Propranolol HCL LA 60 MG CAP.SA.24H PO (07:51)
[2024-07-26] MEDS: Multivitamin TABLET 1 TAB PO (07:51)
[2024-07-26] MEDS: 0.9 % Sodium Chloride Flush 3 ML SYRINGE IVFLUSH ×2 (07:51→15:03)
[2024-07-26] MEDS: Benztropine Mesylate 1 MG TABLET 2 MG PO ×3 (07:51→21:01)
[2024-07-26] MEDS: Lactated Ringers 1,000 ML 80 ML IVCONT (11:07)
[2024-07-26] MEDS: Tiotropium Bromide 2.5 mcg 1 PUFF/2.5 MCG MIST.INHAL 2 PUFF INHALE (11:21)
[2024-07-26] MEDS: Fluticasone/Vilanterol 200/25 BLST.W.DEV 1 PUFF INHALE (11:21)
--- NOTE | 2024-07-26 11:26 | P.PNIM_ITS ---
Subjective Subjective Date of Service: 07/26/24 Interval History: seen and examined this morning follow up for copd/pna breathing improving, weaned off of oxygen no significant cough. no abdominal pain or nausea, tolerating diet Review of Systems Review of Systems: Yes all other systems are reviewed and are negative Constitutional Constitutional: Denies chills and Denies fever(s) Cardiovascular Cardiovascular: Denies chest pain Physical Exam 2 Vital Signs: Vital Signs: Last Vital Signs Temp 98.9 F 07/26/24 07:11 Pulse 62 07/26/24 11:22 Resp 18 07/26/24 11:22 BP 172/90 H 07/26/24 08:55 Pulse Ox 94 07/26/24 07:11 O2 Del Method Room Air 07/26/24 07:11 O2 Flow Rate 3 07/25/24 07:19 BMI result Body Mass Index 23.5 Const: General: cooperative, comfortable, alert and awake Nutritional Appearance: average body habitus Orientation/consciousness: patient oriented x3 Resp: Other: wheezing improving Effort & Inspection: normal respiratory effort, able to speak in complete sentences, no respiratory distress and no use of accessory muscles Cardio: Rate: regular rate GI: Inspection: No distended Palpation (GI): Soft to palpation and nontender Skin: Other: abdominal bruise RLQ bruise of right upper arm Neuro: General: patient oriented x3, moves all extremities and CN's II-XI intact bilaterally Extrem: General: Yes no pedal edema Objective Data Active Medications Acetaminophen (Acetaminophen Supp 650 Mg Supp.Rect) 650 mg DC Q4H PRN PRN Reason: pain or fever Acetaminophen (Acetaminophen 325 Mg Tablet) 975 mg PO Q6H PRN PRN Reason: dilia Albuterol Sulfate (Albuterol Sulfate 90 Mcg 8 Gm Inhaler) 2 puff INHALE Q4H PRN PRN Reason: Wheezing Albuterol/Ipratropium (Albuterol/Iprat 2.5/0.5mg 3 Ml Ampul.Neb) 3 ml INHALE Q4H PRN PRN Reason: Shortness of Breath/Wheezing Amlodipine Besylate (Amlodipine Besylate 10 Mg Tablet) 10 mg PO DAILY [facility]; Protocol Last Admin: 07/26/24 07:50 Dose: 10 mg Documented By: GILDA Aspirin (Aspirin Enteric Coated 81 Mg Tablet.) 81 mg PO DAILY [facility] Last Admin: 07/26/24 07:50 Dose: 81 mg Documented By: GILDA Atorvastatin Calcium (Atorvastatin Calcium 40 Mg Tablet) 40 mg PO BEDTIME [facility] Last Admin: 07/25/24 22:24 Dose: 40 mg Documented By: NAHOMY Benztropine Mesylate (Benztropine Mesylate 1 Mg Tablet) 2 mg PO TID [facility] Last Admin: 07/26/24 07:51 Dose: 2 mg Documented By: GILDA Bisacodyl (Bisacodyl 10 Mg Supp.Rect) 10 mg DC DAILY PRN PRN Reason: Constipation Calcium Carbonate (Calcium Carbonate 750 Mg Tab.Chew) 750 mg PO Q4H PRN PRN Reason: Heartburn Ceftriaxone Sodium (Ceftriaxone Sodium 1 Gm Vial) 1 gm IVPUSH DAILY [facility] Last Admin: 07/26/24 07:51 Dose: 1 gm Documented By: GILDA Docusate Sodium (Docusate Sodium 100 Mg/10 Ml Liquid) 100 mg PO BID PRN PRN Reason: Constipation Doxycycline Monohydrate (Doxycycline Monohydrate 100 Mg Capsule) 100 mg PO BID [facility] Last Admin: 07/26/24 07:50 Dose: 100 mg Documented By: GILDA Enoxaparin Sodium (Enoxaparin Sodium 40 Mg/0.4 Ml Syringe) 40 mg SUBCUT Q24H [facility] Last Admin: 07/25/24 15:51 Dose: Not Given Documented By: DEMI Non-Admin Reason: Physician Held Med Ferrous Sulfate (Ferrous Sulfate 324 Mg Tablet.Dr) 324 mg PO DAILY [facility] Last Admin: 07/26/24 07:50 Dose: 324 mg Documented By: GILDA Fluticasone/Vilanterol (Fluticasone/Vilanterol 200/25 Blst.W.Dev) 1 puff INHALE RDAILY [facility] Last Admin: 07/26/24 11:21 Dose: 1 puff Documented By: RAIMUNDO Folic Acid (Folic Acid 1 Mg Tablet) 1 mg PO DAILY [facility] Last Admin: 07/26/24 07:50 Dose: 1 mg Documented By: GILDA Gabapentin (Gabapentin 300 Mg Capsule) 300 mg PO TID [facility] Last Admin: 07/26/24 07:50 Dose: 300 mg Documented By: GILDA Haloperidol (Haloperidol 1 Mg Tablet) 2 mg PO BEDTIME [facility] Last Admin: 07/25/24 22:24 Dose: 2 mg Documented By: NAHOMY Hydralazine HCl (Hydralazine Hcl 20 Mg/Ml Vial) 5 mg IVPUSH Q6H PRN PRN Reason: SBP > 180 Last Admin: 07/25/24 06:09 Dose: 5 mg Documented By: HARINDER Hydroxyzine HCl (Hydroxyzine Hcl 25 Mg Tablet) 25 mg PO DAILY [facility] Last Admin: 07/26/24 07:50 Dose: 25 mg Documented By: GILDA Lactated Ringer's (Lr) 1,000 mls @ 80 mls/hr IVCONT .[id number] [facility] Stop: 07/26/24 20:29 Last Admin: 07/26/24 11:07 Dose: 80 mls/hr Documented By: GILDA Loratadine (Loratadine 10 Mg Tablet) 10 mg PO DAILY PRN PRN Reason: allergies Magnesium Hydroxide (Milk Of Magnesia 30 Ml Oral.Susp) 30 ml PO DAILY PRN PRN Reason: Constipation Melatonin (Melatonin 3 Mg Tablet) 3 mg PO BEDTIME [facility] Last Admin: 07/25/24 22:23 Dose: 3 mg Documented By: NAHOMY Methylprednisolone Sodium Succinate (Methylprednisolone Sod Succ 40 Mg/Ml Vial) 20 mg IVPUSH BID [facility] Last Admin: 07/26/24 07:50 Dose: 20 mg Documented By: GILDA Mirtazapine (Mirtazapine 7.5 Mg Tablet) 7.5 mg PO BEDTIME [facility] Last Admin: 07/25/24 22:23 Dose: 7.5 mg Documented By: NAHOMY Multivitamins/Vitamin C (Multivitamin Tablet) 1 tab PO DAILY [facility] Last Admin: 07/26/24 07:51 Dose: 1 tab Documented By: GILDA Nicotine Polacrilex (Nicotine Polacrilex Lozenge 4 Mg Lozenge) 4 mg BUCCAL Q2H PRN PRN Reason: Nicotine Cravings Omeprazole (Omeprazole 40 Mg Capsule.Dr) 40 mg PO DAILY@0630 [facility] Last Admin: 07/26/24 06:45 Dose: 40 mg Documented By: NAHOMY Ondansetron HCl (Ondansetron Hcl 4 Mg/2 Ml Vial) 4 mg IVPUSH Q8H PRN PRN Reason: Nausea and Vomiting Polyethylene Glycol (Polyethylene Glycol 3350 17 Gm Powd.Pack) 17 gm PO DAILY PRN PRN Reason: Constipation Propranolol HCl (Propranolol Hcl La 60 Mg Cap.Sa.24h) 60 mg PO DAILY [facility]; Protocol Last Admin: 07/26/24 07:51 Dose: 60 mg Documented By: GILDA Sodium Biphosphate/Sodium Phosphate (Sodium Phosphate,[place]-Dibasic 133 Ml Enema) 118 ml DC DAILY PRN PRN Reason: Constipation Sodium Chloride (0.9 % Sodium Chloride Flush 3 Ml Syringe) 3 ml IVFLUSH QSHIFT [facility] Last Admin: 07/26/24 07:51 Dose: 3 ml Documented By: GILDA Thiamine HCl (Thiamine Hcl 100 Mg Tablet) 100 mg PO DAILY [facility] Last Admin: 07/26/24 07:50 Dose: 100 mg Documented By: GILDA Tiotropium [place] (Tiotropium [place] 2.5 Mcg 1 Puff/2.5 Mcg Mist.Inhal) 2 puff INHALE RDAILY [facility] Last Admin: 07/26/24 11:21 Dose: 2 puff Documented By: RAIMUNDO Labs 07/26/24 05:54 07/26/24 05:54 Labs: Laboratory Results - last 24 hr 07/26/24 05:54 MCV 94.7 MCH 30.2 MCHC 31.8 RDW 16.9 H Plt Count 168 MPV 10.1 Absolute Nucleated RBC 0.000 Nucleated RBC % (auto) 0.0 Anion Gap 13 Estim Creat Clear Calc 42.5 Estimated GFR 42 Random Glucose 139 H Calcium 8.4 Microbiology Microbiology Results: Microbiology 07/23/24 09:52 Blood Culture - Preliminary Blood - Venous No growth after 48 hours. 07/23/24 09:52 Blood Culture - Preliminary Blood - Venous No growth after 48 hours. Assessment and Plan (1) YOLETTE (acute kidney injury): Status: Acute (2) Pneumonia: Status: Acute Plan This is a 63/m with copd here with acute respiratory distress and found to have PNA, COPD exacerbation and possible heart failure. YOLETTE gentle IVF follow BMP Acute on chronic hypoxic respiratory failure d/t copd exacerbation and pneumonia continue IV ceftriaxone and doxy bronchodilators and steroid for copd exacerbation - wean steroids seen by Cardiology, no acute CHF; stop diuretics weaned off supplemental oxygen NSTEMI elevated cardiac enzymes likely due to demand, stop IV heparin echocardiogram with preserved ejection fraction, impaired relaxation, no wall motion abnormality continue aspirin, statin Acute lactic acidosis, not due to sepsis Resolved Mild transaminitis Resolved HLD lipitor HTN continue home meds, will further increase Norvasc to 10 mg p.r.n. hydralazine as needed Schizophrenia continue home meds DVT prophylaxis Lovenox - will hold due to new bruising noted Full code patient requires ongoing inpatient stay for management pneumonia and COPD exacerbation Quality Stroke Does the patient have a stroke diagnosis?: No VTE Prior VTE?: No VTE Risk Level:: Medical - moderate - high VTE Device Contraindication: Treatment Not Indicated VTE Drug Contraindication: N/A - Med Ordered
[2024-07-26] MEDS: Atorvastatin Calcium 40 MG TABLET PO (21:01)
[2024-07-26] MEDS: HaloperidoL 1 MG TABLET 2 MG PO (21:02)
[2024-07-26] MEDS: Melatonin 3 MG TABLET PO (21:02)
[2024-07-26] MEDS: Mirtazapine 7.5 MG TABLET PO (21:02)
[2024-07-27] VITALS (7 sets, daily range): BP systolic 150–190; BP diastolic 78–92; PULSE 59–77; RESP 16–20; TEMP 36–37.2; O2SAT 92–99
[2024-07-27] MEDS: Omeprazole 40 MG CAPSULE.DR PO (06:34)
[2024-07-27 09:35] LABS: Anion Gap 12 (12-20); Blood Urea Nitrogen 37 mg/dL (9-16); Calcium 8.2 mg/dL (8.4-10.2); Carbon Dioxide 27 mmol/L (22-29); Chloride 104 mmol/L (96-108); Creatinine Clr Calc Pharmacy 51.9; Estimated Glomerular Filt Rate 53; Glucose Random 78 mg/dL (60-115); Potassium 3.9 mmol/L (3.3-5.1); Sodium 139 mmol/L (135-145)
[2024-07-27] MEDS: methylPREDNISolone Sod Succ 40 MG/ML VIAL 20 MG IVPUSH (10:22)
[2024-07-27] MEDS: 0.9 % Sodium Chloride Flush 3 ML SYRINGE IVFLUSH ×3 (10:22→21:13)
[2024-07-27] MEDS: Multivitamin TABLET 1 TAB PO (10:23)
[2024-07-27] MEDS: hydrOXYzine HCL 25 MG TABLET PO (10:23)
[2024-07-27] MEDS: amLODIPine Besylate 10 MG TABLET PO (10:23)
[2024-07-27] MEDS: Ferrous Sulfate 324 MG TABLET.DR PO (10:23)
[2024-07-27] MEDS: cefTRIAXone sodium 1 GM VIAL IVPUSH (10:23)
[2024-07-27] MEDS: Folic Acid 1 MG TABLET PO (10:23)
[2024-07-27] MEDS: Thiamine HCL 100 MG TABLET PO (10:23)
[2024-07-27] MEDS: Doxycycline Monohydrate 100 MG CAPSULE PO ×2 (10:23→21:13)
[2024-07-27] MEDS: Gabapentin 300 MG CAPSULE PO ×3 (10:23→21:12)
[2024-07-27] MEDS: Propranolol HCL LA 60 MG CAP.SA.24H PO (10:24)
[2024-07-27] MEDS: Benztropine Mesylate 1 MG TABLET 2 MG PO ×3 (10:24→21:13)
[2024-07-27] MEDS: Aspirin Enteric Coated 81 MG TABLET.DR PO (10:24)
[2024-07-27] MEDS: Fluticasone/Vilanterol 200/25 BLST.W.DEV 1 PUFF INHALE (11:18)
[2024-07-27] MEDS: Tiotropium Bromide 2.5 mcg 1 PUFF/2.5 MCG MIST.INHAL 2 PUFF INHALE (11:18)
--- NOTE | 2024-07-27 11:34 | HO.PM.IMPN ---
Subjective Subjective Date of Service: 07/27/24 Interval History: Seen and examined this morning Follow-up for COPD exacerbation, pneumonia vague historian but no specific complaints Review of Systems Review of Systems: Yes all other systems are reviewed and are negative Constitutional Constitutional: Denies chills and Denies fever(s) Cardiovascular Cardiovascular: Denies chest pain and Denies palpitations Endocrine Endocrine: Denies palpitations Physical Exam Vital Signs: Vital Signs: Last Vital Signs Temp 98.0 F 07/27/24 11:12 Pulse 64 07/27/24 11:19 Resp 18 07/27/24 11:19 BP 190/92 H 07/27/24 11:12 Pulse Ox 97 07/27/24 11:12 O2 Del Method Oxymask 07/27/24 11:12 O2 Flow Rate 3 07/27/24 11:12 BMI result Body Mass Index 23.5 Const: General: cooperative, comfortable, alert and awake Nutritional Appearance: average body habitus Orientation/consciousness: patient oriented x3 Resp: Other: b/l wheeze Effort & Inspection: normal respiratory effort, able to speak in complete sentences, no respiratory distress and no use of accessory muscles Cardio: Rate: regular rate GI: Inspection: No distended Palpation (GI): Soft to palpation and nontender Skin: Other: abdominal bruise RLQ bruise of right upper arm Neuro: General: patient oriented x3, moves all extremities and CN's II-XI intact bilaterally Extrem: General: Yes no pedal edema Objective Data Active Medications Acetaminophen (Acetaminophen Supp 650 Mg Supp.Rect) 650 mg [place] Q4H PRN PRN Reason: pain or fever Acetaminophen (Acetaminophen 325 Mg Tablet) 975 mg PO Q6H PRN PRN Reason: dilia Albuterol Sulfate (Albuterol Sulfate 90 Mcg 8 Gm Inhaler) 2 puff INHALE Q4H PRN PRN Reason: Wheezing Albuterol/Ipratropium (Albuterol/Iprat 2.5/0.5mg 3 Ml Ampul.Neb) 3 ml INHALE Q4H PRN PRN Reason: Shortness of Breath/Wheezing Amlodipine Besylate (Amlodipine Besylate 10 Mg Tablet) 10 mg PO DAILY [facility]; Protocol Last Admin: 07/27/24 10:23 Dose: 10 mg Documented By: ÁNGEL Aspirin (Aspirin Enteric Coated 81 Mg Tablet.) 81 mg PO DAILY [facility] Last Admin: 07/27/24 10:24 Dose: 81 mg Documented By: ÁNGEL Atorvastatin Calcium (Atorvastatin Calcium 40 Mg Tablet) 40 mg PO BEDTIME [facility] Last Admin: 07/26/24 21:01 Dose: 40 mg Documented By: NAHOMY Benztropine Mesylate (Benztropine Mesylate 1 Mg Tablet) 2 mg PO TID [facility] Last Admin: 07/27/24 10:24 Dose: 2 mg Documented By: ÁNGEL Bisacodyl (Bisacodyl 10 Mg Supp.Rect) 10 mg [place] DAILY PRN PRN Reason: Constipation Calcium Carbonate (Calcium Carbonate 750 Mg Tab.Chew) 750 mg PO Q4H PRN PRN Reason: Heartburn Ceftriaxone Sodium (Ceftriaxone Sodium 1 Gm Vial) 1 gm IVPUSH DAILY [facility] Last Admin: 07/27/24 10:23 Dose: 1 gm Documented By: ÁNGEL Docusate Sodium (Docusate Sodium 100 Mg/10 Ml Liquid) 100 mg PO BID PRN PRN Reason: Constipation Doxycycline Monohydrate (Doxycycline Monohydrate 100 Mg Capsule) 100 mg PO BID [facility] Last Admin: 07/27/24 10:23 Dose: 100 mg Documented By: ÁNGEL Enoxaparin Sodium (Enoxaparin Sodium 40 Mg/0.4 Ml Syringe) 40 mg SUBCUT Q24H [facility] Last Admin: 07/25/24 15:51 Dose: Not Given Documented By: DEMI Non-Admin Reason: Physician Held Med Ferrous Sulfate (Ferrous Sulfate 324 Mg Susanne.) 324 mg PO DAILY [facility] Last Admin: 07/27/24 10:23 Dose: 324 mg Documented By: ÁNGEL Fluticasone/Vilanterol (Fluticasone/Vilanterol 200/25 Blst.W.Dev) 1 puff INHALE RDAILY [facility] Last Admin: 07/27/24 11:18 Dose: 1 puff Documented By: CONCEPCION Folic Acid (Folic Acid 1 Mg Tablet) 1 mg PO DAILY [facility] Last Admin: 07/27/24 10:23 Dose: 1 mg Documented By: ÁNGEL Gabapentin (Gabapentin 300 Mg Capsule) 300 mg PO TID [facility] Last Admin: 07/27/24 10:23 Dose: 300 mg Documented By: ÁNGEL Haloperidol (Haloperidol 1 Mg Tablet) 2 mg PO BEDTIME [facility] Last Admin: 07/26/24 21:02 Dose: 2 mg Documented By: NAHOMY Hydralazine HCl (Hydralazine Hcl 20 Mg/Ml Vial) 5 mg IVPUSH Q6H PRN PRN Reason: SBP > 180 Last Admin: 07/25/24 06:09 Dose: 5 mg Documented By: HARINDER Hydroxyzine HCl (Hydroxyzine Hcl 25 Mg Tablet) 25 mg PO DAILY [facility] Last Admin: 07/27/24 10:23 Dose: 25 mg Documented By: ÁNGEL Loratadine (Loratadine 10 Mg Tablet) 10 mg PO DAILY PRN PRN Reason: allergies Magnesium Hydroxide (Milk Of Magnesia 30 Ml Oral.Susp) 30 ml PO DAILY PRN PRN Reason: Constipation Melatonin (Melatonin 3 Mg Tablet) 3 mg PO BEDTIME [facility] Last Admin: 07/26/24 21:02 Dose: 3 mg Documented By: NAHOMY Methylprednisolone Sodium Succinate (Methylprednisolone Sod Succ 40 Mg/Ml Vial) 20 mg IVPUSH Q24H [facility] Last Admin: 07/27/24 10:22 Dose: 20 mg Documented By: ÁNGEL Mirtazapine (Mirtazapine 7.5 Mg Tablet) 7.5 mg PO BEDTIME [facility] Last Admin: 07/26/24 21:02 Dose: 7.5 mg Documented By: NAHOMY Multivitamins/Vitamin C (Multivitamin Tablet) 1 tab PO DAILY [facility] Last Admin: 07/27/24 10:23 Dose: 1 tab Documented By: ÁNGEL Nicotine Polacrilex (Nicotine Polacrilex Lozenge 4 Mg Lozenge) 4 mg BUCCAL Q2H PRN PRN Reason: Nicotine Cravings Omeprazole (Omeprazole 40 Mg Capsule.Dr) 40 mg PO DAILY@0630 [facility] Last Admin: 07/27/24 06:34 Dose: 40 mg Documented By: NAHOMY Ondansetron HCl (Ondansetron Hcl 4 Mg/2 Ml Vial) 4 mg IVPUSH Q8H PRN PRN Reason: Nausea and Vomiting Polyethylene Glycol (Polyethylene Glycol 3350 17 Gm Powd.Pack) 17 gm PO DAILY PRN PRN Reason: Constipation Propranolol HCl (Propranolol Hcl La 60 Mg Cap.Sa.24h) 60 mg PO DAILY [facility]; Protocol Last Admin: 07/27/24 10:24 Dose: 60 mg Documented By: ÁNGEL Sodium Biphosphate/Sodium Phosphate (Sodium Phosphate,[place]-Dibasic 133 Ml Enema) 118 ml [place] DAILY PRN PRN Reason: Constipation Sodium Chloride (0.9 % Sodium Chloride Flush 3 Ml Syringe) 3 ml IVFLUSH QSHIFT [facility] Last Admin: 07/27/24 10:22 Dose: 3 ml Documented By: ÁNGEL Thiamine HCl (Thiamine Hcl 100 Mg Tablet) 100 mg PO DAILY [facility] Last Admin: 07/27/24 10:23 Dose: 100 mg Documented By: ÁNGEL Tiotropium [place] (Tiotropium [place] 2.5 Mcg 1 Puff/2.5 Mcg Mist.Inhal) 2 puff INHALE RDAILY [facility] Last Admin: 07/27/24 11:18 Dose: 2 puff Documented By: BLASCL Labs 07/26/24 05:54 07/27/24 08:46 Labs: Laboratory Results - last 24 hr 07/27/24 07/27/24 08:17 08:46 Hold Purple Top SEE NOTE Anion Gap 12 Estim Creat Clear Calc 51.9 Estimated GFR 53 Random Glucose 78 Calcium 8.2 L Assessment and Plan (1) Acute hypoxemic respiratory failure: Status: Acute (2) Uncontrolled hypertension: Status: Acute Plan This is a 63/m with copd here with acute respiratory distress and found to have PNA, COPD exacerbation and possible heart failure. HTN Blood pressure remains elevated Norvasc increased to 10 mg losartan 25 mg started continue propanolol p.r.n. hydralazine as needed mild YOLETTE improived gentle IVF follow BMP Acute on chronic hypoxic respiratory failure d/t copd exacerbation and pneumonia continue IV ceftriaxone and doxy bronchodilators and steroid for copd exacerbation - wean steroids seen by Cardiology, no acute CHF; stop diuretics weaned off supplemental oxygen NSTEMI elevated cardiac enzymes likely due to demand, stop IV heparin echocardiogram with preserved ejection fraction, impaired relaxation, no wall motion abnormality continue aspirin, statin Acute lactic acidosis, not due to sepsis Resolved Mild transaminitis Resolved HLD lipitor Schizophrenia continue home meds DVT prophylaxis Lovenox - will hold due to new bruising noted likely due to previous IV Full code patient requires ongoing inpatient stay for management pneumonia and COPD exacerbation Quality Stroke Does the patient have a stroke diagnosis?: No VTE Prior VTE?: No VTE Risk Level:: Medical - moderate - high VTE Device Contraindication: Treatment Not Indicated VTE Drug Contraindication: N/A - Med Ordered
[2024-07-27] MEDS: Losartan Potassium 25 MG TABLET PO (11:40)
[2024-07-27] MEDS: Melatonin 3 MG TABLET PO (21:12)
[2024-07-27] MEDS: Atorvastatin Calcium 40 MG TABLET PO (21:13)
[2024-07-27] MEDS: Mirtazapine 7.5 MG TABLET PO (21:13)
[2024-07-27] MEDS: HaloperidoL 1 MG TABLET 2 MG PO (21:13)
[2024-07-28] VITALS: BP 180/86; PULSE 67; RESP 18; TEMP 36.6; O2SAT 94
[2024-07-28 00:45] VITALS: BP 155/76
[2024-07-28 04:00] VITALS: BP 170/86; PULSE 62; RESP 18; TEMP 36.8; O2SAT 95
[2024-07-28] MEDS: Omeprazole 40 MG CAPSULE.DR PO (06:10)
[2024-07-28 07:21] VITALS: BP 172/91; PULSE 64; RESP 18; TEMP 36.1; O2SAT 96
[2024-07-28] MEDS: Tiotropium Bromide 2.5 mcg 1 PUFF/2.5 MCG MIST.INHAL 2 PUFF INHALE (07:53)
[2024-07-28] MEDS: Fluticasone/Vilanterol 200/25 BLST.W.DEV 1 PUFF INHALE (07:53)
[2024-07-28 07:55] VITALS: PULSE 64; RESP 18
[2024-07-28 08:59] LABS: Hematocrit 34.1 % (42.0-52.0); Hemoglobin 10.8 g/dl (14.0-18.0); Mean Corpuscular HGB Conc 31.7 g/dl (31.0-36.0); Mean Corpuscular Hemoglobin 30.1 pg (27.0-33.0); Mean Platelet Volume 10.3 fL (9.4-12.4); Platelet Count 128 X10*3/uL (160-400); Red Blood Count 3.59 X10*6/uL (4.60-5.80); Red Cell Distribution Width 17.2 % (11.0-16.0); White Blood Count 8.5 X10*3/uL (4.8-10.8)
[2024-07-28] MEDS: methylPREDNISolone Sod Succ 40 MG/ML VIAL 20 MG IVPUSH (09:24)
[2024-07-28] MEDS: Benztropine Mesylate 1 MG TABLET 2 MG PO (09:26)
[2024-07-28] MEDS: Propranolol HCL LA 60 MG CAP.SA.24H PO (09:26)
[2024-07-28] MEDS: cefTRIAXone sodium 1 GM VIAL IVPUSH (09:26)
[2024-07-28] MEDS: amLODIPine Besylate 10 MG TABLET PO (09:27)
[2024-07-28] MEDS: Gabapentin 300 MG CAPSULE PO (09:27)
[2024-07-28] MEDS: hydrOXYzine HCL 25 MG TABLET PO (09:27)
[2024-07-28] MEDS: Folic Acid 1 MG TABLET PO (09:27)
[2024-07-28] MEDS: Doxycycline Monohydrate 100 MG CAPSULE PO (09:27)
[2024-07-28] MEDS: Aspirin Enteric Coated 81 MG TABLET.DR PO (09:27)
[2024-07-28] MEDS: Ferrous Sulfate 324 MG TABLET.DR PO (09:27)
[2024-07-28] MEDS: 0.9 % Sodium Chloride Flush 3 ML SYRINGE IVFLUSH (09:28)
[2024-07-28] MEDS: Losartan Potassium 25 MG TABLET PO (09:28)
[2024-07-28] MEDS: Thiamine HCL 100 MG TABLET PO (09:28)
[2024-07-28] MEDS: Multivitamin TABLET 1 TAB PO (09:28)
[2024-07-28 11:21] VITALS: BP 166/90; PULSE 70; RESP 17; TEMP 36.2; O2SAT 98
--- NOTE | 2024-07-28 12:14 | MHC.CM.PN ---
Pt is medically cleared for discharge back to LTC at [facility] [place] today, he will transport there via [facility] [place] shuttle ride (pts [facility] pending and [facility] unable to accept ride until insurance is active). Pt aware and in agreement with discharge plan.
--- NOTE | 2024-07-28 13:25 | PM.DS ---
DS: Providers Provider Date of Service: 07/28/24 Date of admission: 07/23/24 12:24 Date of discharge: 07/28/24 Primary care physician: Mario Alberto Goff MD Consults: 07/23/24 17:49 Consult to Cardiology Routine Consulting Provider: [facility] [place] [facility] Reason for consultation: NSTEMI, CHF Has provider been notified: Yes DS: Diagnosis Discharge Diagnosis (1) Acute hypoxemic respiratory failure: Status: Acute (2) Uncontrolled hypertension: Status: Acute DS: Summary Hospital Course Hospital Course: 63-year-old male with past medical history of COPD not on home oxygen, hypertension, hyperlipidemia, schizophrenia, resident? of [facility] brought to the ED for evaluation of acute onset of shortness of breah, and initially required CPAP and has made rapid imprvement since in the ED, of CPAP. Now oxygen saturation 99 on room air. Flu, RSV and Inlufenza negative. WBC is 15, CXR possible infiltrate and Pura B line, BNP 1959, no Troponin I done. ED treatment Doxy, Ceftriaxone, Albuterol and 20 mg of iv Lasix. . At the time of my evaluation, had no respiratory distress an fairly comfortable, but BP high Acute on chronic hypoxic respiratory failure d/t copd exacerbation and pneumonia. Treated with IV ceftriaxone and doxycycline x5 days. Bronchodilator and IV steroids. Seen by Cardiology, no acute CHF, diuretics were stopped. Patient weaned off supplemental oxygen HTN. Had some elevated blood pressure readings, Norvasc increased to 10 mg, losartan 25 mg added and propranolol continued. mild YOLETTE. improived gentle IVF . follow BMP NSTEMI . elevated cardiac enzymes likely due to demand, stopped IV heparin. echocardiogram with preserved ejection fraction, impaired relaxation, no wall motion abnormality continue aspirin, statin Acute lactic acidosis, not due to sepsis. Resolved Mild transaminitis . Resolved HLD. lipitor Schizophrenia. continue home meds Time Attestation Discharge Coordination Time (in mins): 40 Quality: Safe Use of Opioids Does Pt have an Active Cancer Diagnosis on the Problem List?: No Quality: Stroke Does the patient have a stroke diagnosis?: No Physical Exam Vital Signs: Vital Signs: Last Vital Signs Temp 97.2 F 07/28/24 11:21 Pulse 70 07/28/24 11:21 Resp 17 07/28/24 11:21 BP 166/90 H 07/28/24 11:21 Pulse Ox 98 07/28/24 11:21 O2 Del Method Room Air 07/28/24 11:21 O2 Flow Rate 2 07/27/24 15:22 BMI result Body Mass Index 23.5 Appearing in no acute distress head is normocephalic atraumatic eyes pupils are PERRLA sclera is anicteric mouth throat mucous membranes are intact and moist neck is supple no lymphadenopathy, no JVD noted lung sounds are clear to auscultation heart regular rate rhythm, clear S1, S2 positive bowel sounds, abdomen is soft, nontender neuro patient is alert x3, no focal deficits DS: Data Data Completed and Pending Labs on day of discharge: Laboratory Results - last 24 hr 07/28/24 08:44 WBC 8.5 RBC 3.59 L Hgb 10.8 L Hct 34.1 L MCV 95.0 MCH 30.1 MCHC 31.7 RDW 17.2 H Plt Count 128 L MPV 10.3 Absolute Nucleated RBC 0.000 Nucleated RBC % (auto) 0.0 Discharge Plan Discharge Anticipated Discharge Date/Time: 07/28/24 11:32 Patient Disposition: Xfer LTC Discharge Diagnosis: Hypertension YOLETTE Acute on chronic hypoxic respiratory failure secondary to COPD exacerbation and pneumonia Referrals: [facility] [place] [Outside] - 1 Week Mario Alberto Goff MD [Primary Care Provider] - 1 Week Discharge Medications: New amlodipine 10 mg Tablet 10 mg PO DAILY Qty: 30 0RF Protocol: Hold for SBP< HOLD for SBP < : 90 losartan 25 mg Tablet 25 mg PO DAILY Qty: 30 0RF Protocol: Hold for SBP< HOLD for SBP < : 90 Continued multivitamin Tablet 1 tab PO DAILY docusate sodium 50 mg/5 mL Liquid 100 mg PO BID PRN (Reason: Constipation) atorvastatin 40 mg Tablet 40 mg PO BEDTIME prednisone 10 mg Tablet 10 mg PO DAILY acetaminophen 650 mg Suppository 650 mg IN Q4-6H PRN (Reason: pain or fever) ipratropium-albuterol 0.5 mg-3 mg(2.5 mg base)/3 mL Solution For Nebulization 3 ml INHALATION Q4H PRN (Reason: Wheezing) cetirizine 10 mg Tablet 10 mg PO DAILY PRN (Reason: allergies) propranolol 60 mg Capsule,Extended Release 24 Hr 60 mg PO DAILY thiamine HCl (vitamin B1) 100 mg Tablet 100 mg PO DAILY melatonin 3 mg Tablet 3 mg PO BEDTIME aspirin 81 mg Tablet,Delayed Release (Dr/Ec) 81 mg PO DAILY acetaminophen 500 mg Tablet 1,000 mg PO Q6H PRN (Reason: dilia) magnesium hydroxide [Milk of Magnesia] 400 mg/5 mL Suspension 400 mg PO DAILY PRN (Reason: Constipation) Rx Instructions: if now bowel movement in 3 days bisacodyl 10 mg Suppository 10 mg IN DAILY PRN (Reason: Constipation) Fleet Enema 19-7 gram/118 mL Enema 118 ml IN DAILY PRN (Reason: Constipation) benztropine 2 mg Tablet 2 mg PO TID gabapentin 300 mg Capsule 300 mg PO TID omeprazole 20 mg Capsule,Delayed Release(Dr/Ec) 40 mg PO DAILY@0630 folic acid 1 mg Tablet 1 mg PO DAILY albuterol sulfate 90 mcg/actuation Hfa Aerosol Inhaler 2 puff INHALATION Q4-6H PRN (Reason: Wheezing) haloperidol 2 mg Tablet 2 mg PO BEDTIME hydroxyzine pamoate 25 mg Capsule 25 mg PO DAILY nicotine (polacrilex) 4 mg Lozenge 4 mg BUCCAL Q2-4H PRN (Reason: Nicotine Cravings) tiotropium bromide 18 mcg Capsule, W/Inhalation Device 1 cap INHALATION DAILY Rx Instructions: puncture 1 cap using device; one dose = 2 inhalations mirtazapine 7.5 mg Tablet 7.5 mg PO BEDTIME ferrous gluconate 324 mg (38 mg iron) Tablet 324 mg PO DAILY fluticasone furoate-vilanterol [Breo Ellipta] 200-25 mcg/dose Blister With Device 1 inh INHALATION DAILY Discontinued amlodipine [Norvasc] 2.5 mg Tablet 2.5 mg PO DAILY Discharge Orders: Discharge Order (Routine); Ordered 07/28/24 Ordered By: Avis Schultz Diet: Advance to usual diet Activity on Discharge: As tolerated Stand Alone Forms: Patient Portal Discharge page Print Language: Occitan Care Plan Goals: Completed 5 days antibiotics Health Concerns: Hypertension YOLETTE Acute on chronic hypoxic respiratory failure secondary to COPD exacerbation and pneumonia Plan of Treatment: Follow-up with primary care provider as needed Take all medications as prescribed Assessment: See discharge summary Discharge Date/Time: 07/28/24 13:12
== END 2024-07-28 13:12 | DRG 190 ==
LOC: HO.ED 12:10 → HO.EDOVER 12:24 → HO.IMC 07-24 07:47
PROVIDERS: Physician Assistant Medical; Admitting Provider Internal Medicine; Emergency Provider Emergency Medicine; PCP Family Medicine; Visit Provider Nurse Practitioner Acute Care
DX: J44.0 Chronic obstructive pulmonary disease with (acute) lower respiratory infection (principal); I21.A1 Myocardial infarction type 2; J18.9 Pneumonia, unspecified organism; J96.21 Acute and chronic respiratory failure with hypoxia; E87.21 Acute metabolic acidosis; J44.1 Chronic obstructive pulmonary disease with (acute) exacerbation; E78.5 Hyperlipidemia, unspecified; F20.9 Schizophrenia, unspecified; Z20.822 Contact with and (suspected) exposure to COVID-19; Z99.81 Dependence on supplemental oxygen; Z87.891 Personal history of nicotine dependence; Z79.51 Long term (current) use of inhaled steroids; Z79.52 Long term (current) use of systemic steroids; Z79.899 Other long term (current) drug therapy
CPT/HCPCS: 0241U; 36415; 71045; 80048; 80076; 82803; 83605; 83880; 84484; 85025; 85027; 85610; 85730; 87040; 93005; 93306; 94640; 99285; J0360; J0696; J1271; J1644; J1650; J1938; J2919; J7120; Q9957

== ENCOUNTER → 2024-07-23 08:41 | Outpatient (BNV) | payer MEDICAID, SELFPAY | PROVIDERS: Emergency Provider Emergency Medicine; PCP Family Medicine; Visit Provider Radiology Diagnostic Radiology | DX: J98.4 Other disorders of lung (principal); R91.8 Other nonspecific abnormal finding of lung field | CPT/HCPCS: 71045 ==

== ENCOUNTER → 2024-07-23 09:00 | Outpatient (BNV) | payer SELFPAY | PROVIDERS: Emergency Provider Emergency Medicine; Visit Provider Internal Medicine Cardiovascular Disease | DX: I10 Essential (primary) hypertension (principal); R06.02 Shortness of breath | CPT/HCPCS: 93010 ==

== ENCOUNTER 2024-07-23 12:24 | Outpatient (BNV) | payer SELFPAY | END 2024-07-24 07:00 | PROVIDERS: Admitting Provider Internal Medicine; Emergency Provider Emergency Medicine; PCP Family Medicine; Visit Provider Internal Medicine Cardiovascular Disease | DX: I42.2 Other hypertrophic cardiomyopathy (principal); I21.4 Non-ST elevation (NSTEMI) myocardial infarction; I35.1 Nonrheumatic aortic (valve) insufficiency; I34.0 Nonrheumatic mitral (valve) insufficiency | CPT/HCPCS: 93306 ==

== ENCOUNTER → 2024-07-23 12:24 | Outpatient (BNV) | payer MEDICAID, SELFPAY | PROVIDERS: Admitting Provider Internal Medicine; Emergency Provider Emergency Medicine; PCP Family Medicine; Visit Provider Internal Medicine | DX: J96.01 Acute respiratory failure with hypoxia (principal) | CPT/HCPCS: 99223; 99233; 99499 ==

== ENCOUNTER → 2024-07-23 12:24 | Outpatient (BNV) | payer SELFPAY | PROVIDERS: Admitting Provider Internal Medicine; Emergency Provider Emergency Medicine; PCP Family Medicine; Visit Provider Internal Medicine Cardiovascular Disease | DX: J96.01 Acute respiratory failure with hypoxia (principal) | CPT/HCPCS: 99222 ==